=== PATIENT | female | born 1980 | race Caucasian/White ===

== ENCOUNTER → 2016-11-11 | Outpatient (CLI) | payer OTHER ==
--- NOTE | 2016-11-11 17:28 | XR ---
EXAMINATION TYPE: XR chest 2V DATE OF EXAM: 11/11/2016 5:24 PM COMPARISON: [id number] HISTORY: Cough and congestion TECHNIQUE: Frontal and lateral views of the chest are obtained. FINDINGS: Heart and mediastinum are normal. Lungs are clear. Diaphragm is normal. Bony thorax and so ft tissues appear normal. IMPRESSION: Normal chest. No change.
--- NOTE | 2016-11-11 17:51 | XR ---
EXAMINATION TYPE: XR lumbosacral spine min 4V DATE OF EXAM: 11/11/2016 5:27 PM COMPARISON: 01/25/2013 HISTORY: Back pain TECHNIQUE: 5 views FINDINGS: There is a very slight dextroscoliosis. Disc spaces are fairly well-maintained. Posterior e lements are intact. I see no compression fracture. Sacroiliac joints are normal. IMPRESSION: Negative lumbar spine exam. No change. IUD is noted.
== END | disposition home or self-care (01) ==
LOC: RADXRMAIN 17:11
PROVIDERS: ATTEND Internal Medicine
DX: J44.9 Chronic obstructive pulmonary disease, unspecified (principal); M54.5 Low back pain; I11.9 Hypertensive heart disease without heart failure; E78.2 Mixed hyperlipidemia; R35.0 Frequency of micturition; Z97.5 Presence of (intrauterine) contraceptive device
CPT/HCPCS: 71020; 72110

== ENCOUNTER → 2016-12-11 | Outpatient (CLI) | payer OTHER ==
[2016-12-11 16:24] LABS: CHCM 31.4; HDW 2.42; HGB 12.4 gm/dL (11.4-16.0); MCH 27.7 pg (25.0-35.0); MCV 89.4 fL (80.0-100.0); Mean Platelet Volume 6.3; RBC 4.47 m/uL (3.80-5.40); RDW 13.3 % (11.5-15.5); WBC 11.3 k/uL (3.8-10.6)
[2016-12-11 16:33] LABS: ALT 33 U/L (9-52); AST 22 U/L (14-36); Alkaline Phosphatase 91 U/L (38-126); Anion Gap 8 mmol/L; Blood Urea Nitrogen 12 mg/dL (7-17); Calcium 9.3 mg/dL (8.4-10.2); Carbon Dioxide 29 mmol/L (22-30); Chloride 102 mmol/L (98-107); Cholesterol 170 mg/dL (<200); Glucose 87 mg/dL (74-99); HDL Cholesterol 62 mg/dL (40-60); Non-African American GFR(MDRD) >60 (>60 ml/min/1.73 sqM); Potassium 5.2 mmol/L (3.5-5.1); Sodium 139 mmol/L (137-145); Total Bilirubin 0.3 mg/dL (0.2-1.3); Triglycerides 98 mg/dL (<150)
== END | disposition home or self-care (01) ==
LOC: LABWHC1 15:39
PROVIDERS: ATTEND Internal Medicine
DX: I11.9 Hypertensive heart disease without heart failure (principal); E78.2 Mixed hyperlipidemia; M54.5 Low back pain; R35.0 Frequency of micturition; J44.9 Chronic obstructive pulmonary disease, unspecified
CPT/HCPCS: 36415; 80053; 80061; 84439; 84443; 85027

== ENCOUNTER → 2016-12-12 | Outpatient (CLI) | payer OTHER | END | disposition home or self-care (01) | LOC: LABWHC1 12:26 | PROVIDERS: ATTEND Internal Medicine | DX: Z02.83 Encounter for blood-alcohol and blood-drug test (principal) | CPT/HCPCS: 80306 ==

== ENCOUNTER 2016-12-20 19:34 | Emergency (ER) | payer OTHER ==
[2016-12-20 19:45] VITALS: BP 144/75; PULSE 98; RESP 18; TEMP 97.9
--- NOTE | 2016-12-20 19:49 | ED ---
General Adult HPI - General Chief complaint: Dental/Oral Stated complaint: Dental Pain Time Seen by Provider: 12/20/16 19:42 Source: patient, RN notes reviewed Mode of arrival: ambulatory Limitations: no limitations - History of Present Illness Initial comments: Patient 36-year-old female who presents emergency room today with chief complaint of increased dental pain. Patient states that over the last 4 days that increased pain over tooth #19. Patient also admits that over the past 2 days that increased pain over tooth #3. Patient admits to some swelling over the left lower jaw. Admits some foul taste in the mouth. Patient denies any other complaints symptoms. Does admit that she has an appointment with a dental surgeon in 2 days. Patient denies any recent fever, chills, shortness of breath, chest pain, back pain, abdominal pain, nausea or vomiting, numbness or tingling, dysuria or hematuria, constipation or diarrhea, headaches or visual changes, or any other complaints. - Related Data Home Medications Medication Instructions Recorded Confirmed ALPRAZolam [Xanax] 1 tab PO TID PRN 02/06/16 12/20/16 Carisoprodol [Soma] 350 mg PO TID PRN 05/27/16 12/20/16 Gabapentin [Neurontin] 600 mg PO BID 05/27/16 12/20/16 Ibuprofen [Motrin] 600 mg PO TID PRN 05/27/16 12/20/16 oxyCODONE-APAP 10-325MG [Percocet 1 tab PO TID PRN 05/27/16 12/20/16 10-325 mg] Previous Rx's Medication Instructions Recorded HYDROcodone/APAP 5-325MG [[place] 5] 1 each PO Q4HR PRN #20 tab 05/27/16 Clindamycin HCl [Cleocin] 300 mg PO Q6HR 10 Days 12/20/16 traMADol HCl [Ultram] 50 mg PO Q6H PRN #20 tab 12/20/16 Allergies Allergy/AdvReac Type Severity Reaction Status Date / Time codeine Allergy Rash/Hives Verified 12/20/16 19:45 erythromycin base Allergy Rash/Hives Verified 12/20/16 19:45 Penicillins Allergy Rash/Hives Verified 12/20/16 19:45 Review of Systems ROS Statement: Those systems with pertinent positive or pertinent negative responses have been documented in the HPI. ROS Other: All systems not noted in ROS Statement are negative. Past Medical History Past Medical History: No Reported History, Hypertension Additional Past Medical History / Comment(s): cervical cancer History of Any Multi-Drug Resistant Organisms: None Reported Additional Past Surgical History / Comment(s): leep procedure Past Psychological History: Anxiety Smoking Status: Current every day smoker Past Alcohol Use History: None Reported Past Drug Use History: None Reported General Exam - General Exam Comments Initial Comments: General: The patient is awake and alert, in no distress, and does not appear acutely ill. Eye: Pupils are equal, round and reactive to light, extra-ocular movements are intact. No nystagmus. There is normal conjunctiva bilaterally. No signs of icterus. Ears, nose, mouth and throat: There are moist mucous membranes and no oral lesions. Poor dental hygiene with multiple fractured teeth. Patient does have fractured tooth of tooth #19 and tooth #3. Local swelling of the gumline low tooth #19 local tenderness area. Uvula midline. Patient swallows without difficulty. Neck: The neck is supple, there is no tenderness or JVD. Cardiovascular: There is a regular rate and rhythm. No murmur, rub or gallop is appreciated. Respiratory: Lungs are clear to auscultation, respirations are non-labored, breath sounds are equal. No wheezes, stridor, rales, or rhonchi. Musculoskeletal: Normal ROM, no tenderness. Strength 5/5. Sensation intact. Pulses equal bilaterally 2+. Neurological: A&O x 3. CN II-XII intact, There are no obvious motor or sensory deficits. Coordination appears grossly intact. Speech is normal. Skin: Skin is warm and dry and no rashes or lesions are noted. Psychiatric: Cooperative, appropriate mood & affect, normal judgment. Limitations: no limitations Course Vital Signs 12/20/16 19:42 Temperature 97.9 F Pulse Rate 98 Respiratory 18 Rate Blood Pressure 144/75 O2 Sat by Pulse 97 Oximetry Medical Decision Making - Medical Decision Making Patient will be started on Vioxx myosin due to ALLERGIES to penicillin also given a short prescription of pain medication of Ultram. Advised to follow with the oral surgeon. Advised to return for any other concerns. Disposition Clinical Impression: Dental abscess Disposition: HOME SELF-CARE Condition: Good Instructions: Dental Abscess (ED) Additional Instructions: Please use medication as discussed. Please follow-up with oral surgeon. Please return to emergency room if the symptoms increase or worsen or for any other concerns. Prescriptions: Clindamycin HCl [Cleocin] 300 mg PO Q6HR 10 Days traMADol HCl [Ultram] 50 mg PO Q6H PRN #20 tab PRN Reason: Pain Time of Disposition: 19:48
== END 2016-12-20 19:54 | disposition home or self-care (01) ==
LOC: EC 19:34
DX: K04.7 Periapical abscess without sinus (principal); S02.5XXA Fracture of tooth (traumatic), initial encounter for closed fracture; F17.200 Nicotine dependence, unspecified, uncomplicated; Z88.0 Allergy status to penicillin; Z88.1 Allergy status to other antibiotic agents; Z88.5 Allergy status to narcotic agent
CPT/HCPCS: 99282

== ENCOUNTER → 2017-02-05 | Outpatient (CLI) | payer OTHER ==
[2017-02-05 14:12] LABS: Anion Gap 14 mmol/L; Blood Urea Nitrogen 8 mg/dL (7-17); Carbon Dioxide 22 mmol/L (22-30); Chloride 102 mmol/L (98-107); Non-African American GFR(MDRD) >60 (>60 ml/min/1.73 sqM); Potassium 4.1 mmol/L (3.5-5.1); Sodium 138 mmol/L (137-145)
--- NOTE | 2017-02-05 15:34 | US ---
EXAMINATION TYPE: US thyroid st tissue head/neck DATE OF EXAM: 02/05/2017 1:41 PM COMPARISON: In pacs CLINICAL HISTORY: R22.0 SWELLING/MASS NECK HEAD. Follow up thyroid nodule GLAND SIZE: Right Lobe: 4.3 x 1.3 x 2.1 cm Overall Parenchyma: slightly heterogenous Left Lobe: 3.7 x 1.2 x 1.2 cm Overall Parenchyma: slightly heterogeneous Isthmus Thickness: 0.2 cm NODULES RIGHT: # of nodules measured on right: 0 LEFT: # of nodules measured on left: 1 1. 0.7 X 0.5 x 0.6 cm hypoechoic mixed nodule at the lower pole with well-defined margins. This nod ule is wider than tall and shows no intranodular vascularity. Prior size: 0.6 x 0.3 x 0.5 cm ISTHMUS: # of nodules measured in the isthmus: 0 Bilateral slightly heterogeneous thyroid with left lobe nodule described above. IMPRESSION: 1. Correlate for mild thyroiditis 2. Subcentimeter left thyroid nodule may be very minimally increased in size relative to previous exa m.
== END | disposition home or self-care (01) ==
LOC: LABWHC1 13:15
PROVIDERS: ATTEND Internal Medicine
DX: E04.1 Nontoxic single thyroid nodule (principal); I11.9 Hypertensive heart disease without heart failure; E87.6 Hypokalemia
CPT/HCPCS: 36415; 76536; 80051; 82565; 84520

== ENCOUNTER 2017-03-23 09:44 | Emergency (ER) | payer OTHER ==
--- NOTE | 2017-03-23 10:58 | ED ---
General Adult HPI - General Chief complaint: Skin/Abscess/Foreign Body Stated complaint: CYST ON HEAD Time Seen by Provider: 03/23/17 10:10 Source: patient, RN notes reviewed Mode of arrival: ambulatory Limitations: no limitations - History of Present Illness Initial comments: Patient 36-year-old female who presents emergency room today with a chief complaint of a abscess located to the left side of her head. She states she noticed a few days ago. States it is tender and painful. She denies any other complaints or symptoms. Patient denies any recent fever, chills, shortness of breath, chest pain, back pain, abdominal pain, nausea or vomiting, numbness or tingling, dysuria or hematuria, constipation or diarrhea, headaches or visual changes, or any other complaints. - Related Data Home Medications Medication Instructions Recorded Confirmed ALPRAZolam [Xanax] 1 tab PO TID PRN 02/06/16 12/20/16 Carisoprodol [Soma] 350 mg PO TID PRN 05/27/16 12/20/16 Gabapentin [Neurontin] 600 mg PO BID 05/27/16 12/20/16 Ibuprofen [Motrin] 600 mg PO TID PRN 05/27/16 12/20/16 oxyCODONE-APAP 10-325MG [Percocet 1 tab PO TID PRN 05/27/16 12/20/16 10-325 mg] Previous Rx's Medication Instructions Recorded HYDROcodone/APAP 5-325MG [[place] 5] 1 each PO Q4HR PRN #20 tab 05/27/16 Clindamycin HCl [Cleocin] 300 mg PO Q6HR 10 Days 12/20/16 traMADol HCl [Ultram] 50 mg PO Q6H PRN #20 tab 12/20/16 Ibuprofen [Motrin] 600 mg PO Q6HR PRN #40 day 03/23/17 Sulfamethox-Tmp 800-160Mg [Bactrim 1 tab PO Q12HR #20 tab 03/23/17 DS 800-160 mg] Allergies Allergy/AdvReac Type Severity Reaction Status Date / Time codeine Allergy Rash/Hives Verified 12/20/16 19:45 erythromycin base Allergy Rash/Hives Verified 12/20/16 19:45 Penicillins Allergy Rash/Hives Verified 12/20/16 19:45 Review of Systems ROS Statement: Those systems with pertinent positive or pertinent negative responses have been documented in the HPI. ROS Other: All systems not noted in ROS Statement are negative. Past Medical History Past Medical History: No Reported History, Hypertension Additional Past Medical History / Comment(s): cervical cancer History of Any Multi-Drug Resistant Organisms: None Reported Additional Past Surgical History / Comment(s): leep procedure Past Psychological History: Anxiety Smoking Status: Current every day smoker Past Alcohol Use History: None Reported Past Drug Use History: None Reported General Exam - General Exam Comments Initial Comments: General: The patient is awake and alert, in no distress, and does not appear acutely ill. Eye: Pupils are equal, round and reactive to light, extra-ocular movements are intact. No nystagmus. There is normal conjunctiva bilaterally. No signs of icterus. Ears, nose, mouth and throat: There are moist mucous membranes and no oral lesions. Neck: The neck is supple, there is no tenderness or JVD. Cardiovascular: There is a regular rate and rhythm. No murmur, rub or gallop is appreciated. Respiratory: Lungs are clear to auscultation, respirations are non-labored, breath sounds are equal. No wheezes, stridor, rales, or rhonchi. Musculoskeletal: Normal ROM, no tenderness. Strength 5/5. Sensation intact. Pulses equal bilaterally 2+. Neurological: A&O x 3. CN II-XII intact, There are no obvious motor or sensory deficits. Coordination appears grossly intact. Speech is normal. Skin: Proximal May 1 0.5 cm abscess located to the left parietal area. Locally red and tender and swollen. Psychiatric: Cooperative, appropriate mood & affect, normal judgment. Limitations: no limitations Course Vital Signs 03/23/17 10:05 Temperature 98.2 F Pulse Rate 98 Respiratory 20 Rate Blood Pressure 129/66 O2 Sat by Pulse 99 Oximetry Procedures - Procedures Initial comment: Procedure: Incision and drainage The skin overlying the abscess was prepped with Betadine, and anesthetized with 1% lidocaine without epinephrine. A #11 scalpel was then used to incise the abscess. Some purulent material was then extracted from the lesion. Wound culture obtained. Gauze dressing placed on top, The patient tolerated the procedure well. Disposition Clinical Impression: Abscess Disposition: HOME SELF-CARE Condition: Good Instructions: Abscess (ED) Additional Instructions: Please continue warm compresses to the affected area use antibiotics and pain medication as prescribed. Please return to emergency room symptoms increase or worsen or for any other concerns. Prescriptions: Ibuprofen [Motrin] 600 mg PO Q6HR PRN #40 day PRN Reason: Pain Sulfamethox-Tmp 800-160Mg [Bactrim DS 800-160 mg] 1 tab PO Q12HR #20 tab Referrals: None,Stated [Primary Care Provider] - 1-2 days Time of Disposition: 10:58
[2017-03-23 11:11] VITALS: BP 118/72; PULSE 71; RESP 16; TEMP 97.1
== END 2017-03-23 11:11 | disposition home or self-care (01) ==
LOC: EC 09:44
DX: L02.811 Cutaneous abscess of head [any part, except face] (principal); F17.200 Nicotine dependence, unspecified, uncomplicated; Z85.41 Personal history of malignant neoplasm of cervix uteri; Z88.0 Allergy status to penicillin; Z88.1 Allergy status to other antibiotic agents; Z88.5 Allergy status to narcotic agent; Z79.899 Other long term (current) drug therapy
CPT/HCPCS: 10060; 99282

== ENCOUNTER 2018-04-30 21:37 | Emergency (ER) | payer OTHER ==
[2018-04-30] MEDS ORDERED: traMADol 50 MG STARTER PACK 3 TAB BTL PO STA (23:30)
[2018-04-30] MEDS ORDERED: IBUPROFEN 600 MG TAB PO STA (23:30)
[2018-04-30] MEDS ORDERED: ONDANSETRON ODT 4 MG TAB PO STA (23:30)
[2018-04-30] MEDS ORDERED: KETOROLAC 30 MG/ML 1 ML VIAL IM STA (23:31)
[2018-04-30] MEDS ORDERED: CLINDAMYCIN 150 MG CAP PO STA (23:31)
--- NOTE | 2018-04-30 23:32 | ED ---
ENT HPI - General Chief complaint: Dental/Oral Stated complaint: Dental Pain Time Seen by Provider: 04/30/18 23:08 Source: patient Mode of arrival: ambulatory Limitations: no limitations - History of Present Illness Initial comments: 37-year-old female patient presents the emergency department today for evaluation of right upper dental pain. Patient states that this started approximately 3 days ago. States she has been taking Tylenol Motrin without much relief of her symptoms. Patient believes she may have a dental infection. States that she does have multiple broken teeth. States that she did call the dentist and she does have an appointment on the . Patient denies any fevers or chills. States that she has been nauseated. States that she can feel things draining from the gums and she feels this is causing the nausea. She denies any abdominal pain, constipation, or diarrhea. Denies any hematuria , dysuria, urinary frequency, urinary urgency. Related to the mouth she does not have any trismus or difficulty swallowing. - Related Data Home Medications Medication Instructions Recorded Confirmed ALPRAZolam [Xanax] 1 mg PO TID PRN 04/30/18 04/30/18 Acetaminophen [Tylenol Extra 1,000 mg PO Q6H PRN 04/30/18 04/30/18 Strength] Ibuprofen [Motrin Ib] 800 mg PO TID PRN 04/30/18 04/30/18 Previous Rx's Medication Instructions Recorded Clindamycin HCl 300 mg PO Q6H #40 cap 04/30/18 Ibuprofen [Motrin] 600 mg PO Q8HR PRN #30 tab 04/30/18 Allergies Allergy/AdvReac Type Severity Reaction Status Date / Time codeine Allergy Rash/Hives Verified 04/30/18 22:56 erythromycin base Allergy Rash/Hives Verified 04/30/18 22:56 Penicillins Allergy Rash/Hives Verified 04/30/18 22:56 sulfamethoxazole Allergy Swelling Verified 04/30/18 22:56 [From Bactrim] trimethoprim [From Bactrim] Allergy Swelling Verified 04/30/18 22:56 Review of Systems ROS Statement: Those systems with pertinent positive or pertinent negative responses have been documented in the HPI. ROS Other: All systems not noted in ROS Statement are negative. Past Medical History Past Medical History: No Reported History, Hypertension Additional Past Medical History / Comment(s): cervical cancer History of Any Multi-Drug Resistant Organisms: None Reported Additional Past Surgical History / Comment(s): leep procedure Past Psychological History: Anxiety Smoking Status: Current every day smoker Past Alcohol Use History: Occasional Past Drug Use History: None Reported General Exam Limitations: no limitations General appearance: alert, in no apparent distress, other (This is a well- developed, well-nourished adult female patient in no acute distress. Vital signs upon presentation are temperature 98.9F, pulse 99, respirations 18, blood pressure 148/89, pulse ox 98% on room air.) Eye exam: Present: normal appearance, PERRL, EOMI. Absent: scleral icterus, conjunctival injection, periorbital swelling ENT exam: Present: normal oropharynx, mucous membranes moist, other (Patient has multiple broken teeth and very poor dentition. Multiple dental caries. Patient does have gingival erythema and hyperplasia however there is no evidence of drainable abscess.). Absent: normal exam Neck exam: Present: normal inspection. Absent: tenderness, meningismus, lymphadenopathy Respiratory exam: Present: normal lung sounds bilaterally. Absent: respiratory distress, wheezes, rales, rhonchi, stridor Cardiovascular Exam: Present: regular rate, normal rhythm, normal heart sounds. Absent: systolic murmur, diastolic murmur, rubs, gallop, clicks GI/Abdominal exam: Present: soft, normal bowel sounds. Absent: distended, tenderness, guarding, rebound, rigid Neurological exam: Present: alert, oriented X3, CN II-XII intact Psychiatric exam: Present: normal affect, normal mood Skin exam: Present: warm, dry, intact, normal color. Absent: rash Course Vital Signs 04/30/18 04/30/18 21:44 23:37 Temperature 98.9 F 97.9 F Pulse Rate 99 86 Respiratory 18 16 Rate Blood Pressure 148/89 143/98 O2 Sat by Pulse 98 99 Oximetry Medical Decision Making - Medical Decision Making 37-year-old female patient presented to the emergency department today for evaluation of right upper dental pain and nausea. Physical examination did reveal very poor dentition with multiple broken teeth and extensive dental caries. She does have a dentist appointment on May 09. States she is on the emergency can't fully she must. She is afebrile at this time. Abdomen is soft and nontender. She'll be given a prescription for clindamycin, Zofran, ibuprofen, and a starter pack of tramadol for acute pain relief. She is instructed to follow-up with her primary care physician for recheck in 1-2 days. Return parameters discussed in detail. She verbalizes understanding and agrees with this plan. Disposition Clinical Impression: Dental infection Disposition: HOME SELF-CARE Condition: Good Instructions: Dental Caries (ED), Toothache (ED) Additional Instructions: Take medications as directed. Follow-up with the dentist as soon as possible. Return here immediately for any new, worsening, or concerning symptoms. Prescriptions: Clindamycin HCl 300 mg PO Q6H #40 cap Ibuprofen [Motrin] 600 mg PO Q8HR PRN #30 tab PRN Reason: Pain Is patient prescribed a controlled substance at d/c from ED?: No Referrals: None,Stated [Primary Care Provider] - 1-2 days Time of Disposition: 23:32
[2018-04-30 23:45] VITALS: BP 143/98; PULSE 86; RESP 16; TEMP 97.9
== END 2018-05-01 00:10 | disposition home or self-care (01) ==
LOC: EC 21:37
DX: K04.7 Periapical abscess without sinus (principal); K02.9 Dental caries, unspecified; K06.1 Gingival enlargement; K06.8 Other specified disorders of gingiva and edentulous alveolar ridge; S02.5XXA Fracture of tooth (traumatic), initial encounter for closed fracture; R11.0 Nausea; F17.200 Nicotine dependence, unspecified, uncomplicated; Z88.0 Allergy status to penicillin; Z88.1 Allergy status to other antibiotic agents; Z88.5 Allergy status to narcotic agent; Z85.41 Personal history of malignant neoplasm of cervix uteri; Z98.890 Other specified postprocedural states; X58.XXXA Exposure to other specified factors, initial encounter
CPT/HCPCS: 99282; 96372; J1885

== ENCOUNTER 2018-10-26 15:24 | Emergency (ER) | payer OTHER ==
[2018-10-26] MEDS ORDERED: HYDROcodone/APAP 5-325MG 1 EACH TAB PO STA (16:30)
--- NOTE | 2018-10-26 16:33 | ED ---
ENT HPI - General Chief complaint: Dental/Oral Stated complaint: tooth abscess Source: patient Mode of arrival: ambulatory Limitations: no limitations - History of Present Illness Initial comments: This is a 38-year-old female who denies past history presenting today for chief complaint of right-sided dental pain. Patient states that she has had pain in the right upper and right lower teeth for the past 23 days. She states is interfering with her sleep. Patient denies a fever, chills, general malaise, tongue swelling, swelling below tongue or swelling of the facial tissues or neck. Patient has a difficulty breathing or swelling. Patient denies any intractable headache. Patient does state the pain radiates towards ear. Patient denies any nausea, vomiting. Patient states she is concerned about dental abscess. Patient presents today for evaluation. Upon arrival patient appears well, no signs of acute distress. No signs of toxicity. Remainder of ROS negative, patient denies any recent shortness of breath, chest pain, back pain, abdominal pain, numbness or tingling, dysuria or hematuria, constipation or diarrhea, headaches or visual changes, or any other complaints. Upon arrival BP elevated. - Related Data Home Medications Medication Instructions Recorded Confirmed ALPRAZolam [Xanax] 1 mg PO TID PRN 04/30/18 04/30/18 Acetaminophen [Tylenol Extra 1,000 mg PO Q6H PRN 04/30/18 04/30/18 Strength] Ibuprofen [Motrin Ib] 800 mg PO TID PRN 04/30/18 04/30/18 Previous Rx's Medication Instructions Recorded Clindamycin HCl 300 mg PO Q6H #40 cap 04/30/18 Ibuprofen [Motrin] 600 mg PO Q8HR PRN #30 tab 04/30/18 Clindamycin [Cleocin] 450 mg PO Q8H 7 Days #63 capsule 10/26/18 HYDROcodone/APAP 5-325MG [[place] 1 - 2 tab PO Q6HR PRN 2 Days #8 tab 10/26/18 5-325] Ibuprofen 800 mg PO Q8H PRN 7 Days #21 tablet 10/26/18 Allergies Allergy/AdvReac Type Severity Reaction Status Date / Time codeine Allergy Rash/Hives Verified 10/26/18 15:31 erythromycin base Allergy Rash/Hives Verified 10/26/18 15:31 Penicillins Allergy Rash/Hives Verified 10/26/18 15:31 sulfamethoxazole Allergy Swelling Verified 10/26/18 15:31 [From Bactrim] trimethoprim [From Bactrim] Allergy Swelling Verified 10/26/18 15:31 Review of Systems ROS Statement: Those systems with pertinent positive or pertinent negative responses have been documented in the HPI. ROS Other: All systems not noted in ROS Statement are negative. Constitutional: Denies: fever, chills, night sweats ENT: Reports: dental pain Respiratory: Denies: cough, dyspnea Cardiovascular: Denies: chest pain, palpitations Endocrine: Denies: fatigue Gastrointestinal: Denies: abdominal pain, nausea, vomiting Genitourinary: Denies: urgency, dysuria, frequency, hematuria, discharge Musculoskeletal: Denies: back pain Skin: Denies: rash, lesions Past Medical History Past Medical History: Hypertension Additional Past Medical History / Comment(s): cervical cancer History of Any Multi-Drug Resistant Organisms: None Reported Additional Past Surgical History / Comment(s): leep procedure Past Psychological History: Anxiety Smoking Status: Current every day smoker Past Alcohol Use History: Occasional Past Drug Use History: None Reported General Exam - General Exam Comments Initial Comments: General: The patient is awake and alert, in no distress, and does not appear acutely ill. Eye: Pupils are equal, round and reactive to light, extra-ocular movements are intact. No nystagmus. There is normal conjunctiva bilaterally. No signs of icterus. Ears, nose, mouth and throat: There are moist mucous membranes and no oral lesions. Patient has overall poor dentition with multiple caries and cracked teeth. There is no palpable fluctuant abscess along the adjacent gingiva of the upper or lower dentition. Patient is painful to percussion of tooth #15. Neck: The neck is supple, there is no tenderness or JVD. Anterior cervical adenopathy, no swelling below the angle of the mandible no swelling below the tongue or of the oral soft tissues. Cardiovascular: There is a regular rate and rhythm. No murmur, rub or gallop is appreciated. Respiratory: Lungs are clear to auscultation, respirations are non-labored, breath sounds are equal. No wheezes, stridor, rales, or rhonchi. Musculoskeletal: Normal ROM, no tenderness. Strength 5/5. Sensation intact. Pulses equal bilaterally 2+. Neurological: A&O x 3. CN II-XII intact, There are no obvious motor or sensory deficits. Coordination appears grossly intact. Speech is normal. Skin: Skin is warm and dry and no rashes or lesions are noted. Psychiatric: Cooperative, appropriate mood & affect, normal judgment. Limitations: no limitations Course Vital Signs 10/26/18 10/26/18 15:29 16:43 Temperature 98.0 F 98.2 F Pulse Rate 96 91 Respiratory 20 18 Rate Blood Pressure 151/95 138/78 O2 Sat by Pulse 100 98 Oximetry Medical Decision Making - Medical Decision Making Physical exam concerning for periapical abscess. No signs worrisome for systemic spread of infection, or drugs angina. Patient is overall poor dentition, I recommended that definitive treatment of periapical abscess is extraction the tooth. Patient be started on clindamycin given her penicillin ALLERGY. In addition patient was giving a 2 day supply of norco which she states she has previously taken. The associated risks with taking [place] was discussed at length the patient including risk of overdose in depth. Patient verbalizes understanding. Patient denies use of alcohol, benzodiazepines, muscle relaxants or any other respiratory suppressing medications. Patient was given a single dose here, she states she has a ride home. I heard her verbalizes over the phone speaking with ride. At this time I feel pt is stable for discharge with dental f/u tooth extraction next 1-2 days. Patient verbalizes understanding. Patient discharged in stable condition Disposition Clinical Impression: Periapical abscess Disposition: HOME SELF-CARE Condition: Good Instructions: Dental Abscess (ED) Additional Instructions: Please use medication as discussed. Please follow-up with family doctor in the next 2 days, please seek dentist or follow-up with oral surgeon for extraction- MUST EXTRACT TOOTH for definitive treatment. Please return to emergency room if the symptoms increase or worsen or for any other concerns- as discussed including swelling of tongue/face/below tongue/difficulty breathing/intractable headache. Prescriptions: Clindamycin [Cleocin] 450 mg PO Q8H 7 Days #63 capsule HYDROcodone/APAP 5-325MG [[place] 5-325] 1 - 2 tab PO Q6HR PRN 2 Days #8 tab PRN Reason: Severe Pain Ibuprofen 800 mg PO Q8H PRN 7 Days #21 tablet PRN Reason: Pain Is patient prescribed a controlled substance at d/c from ED?: No Referrals: None,Stated [Primary Care Provider] - 1-2 days Milton Phillips DDS [STAFF PHYSICIAN] - 1-2 days Time of Disposition: 16:32
[2018-10-26 16:45] VITALS: BP 138/78; PULSE 91; RESP 18; TEMP 98.2
== END 2018-10-26 16:43 | disposition home or self-care (01) ==
LOC: EC 15:24
DX: K04.7 Periapical abscess without sinus (principal); K02.9 Dental caries, unspecified; K03.81 Cracked tooth; F17.200 Nicotine dependence, unspecified, uncomplicated; Z88.0 Allergy status to penicillin; Z88.1 Allergy status to other antibiotic agents; Z88.2 Allergy status to sulfonamides; Z88.5 Allergy status to narcotic agent; Z85.41 Personal history of malignant neoplasm of cervix uteri
CPT/HCPCS: 99283

== ENCOUNTER 2019-05-14 15:04 | Emergency (ER) | payer OTHER ==
[2019-05-14 15:12] VITALS: RESP 18
[2019-05-14] MEDS ORDERED: HYDROcodone/APAP 5-325MG 1 EACH TAB PO STA (16:12)
--- NOTE | 2019-05-14 16:18 | ED ---
ENT HPI - General Chief complaint: Dental/Oral Stated complaint: Abscess tooth Time Seen by Provider: 05/14/19 15:22 Source: patient Mode of arrival: ambulatory Limitations: no limitations - History of Present Illness Initial comments: 38-year-old female presented for left upper dental pain. Patient states she has had bad teeth for years and history of previous abscess of the the teeth. Patient admit to sharp pain increasing with hot cold foods that radiates to the left ear. Patient denies fever, swelling below the tongue or of the neck, compressive symptoms, difficulty swallowing or breathing. Patient denies . Remaining ROS (-). Upon arrival patient appears well no sign of toxicity or distress. - Related Data Home Medications Medication Instructions Recorded Confirmed ALPRAZolam [Xanax] 1 mg PO TID PRN 04/30/18 04/30/18 Acetaminophen [Tylenol Extra 1,000 mg PO Q6H PRN 04/30/18 04/30/18 Strength] Ibuprofen [Motrin Ib] 800 mg PO TID PRN 04/30/18 04/30/18 Previous Rx's Medication Instructions Recorded Clindamycin HCl 300 mg PO Q6H #40 cap 04/30/18 Ibuprofen [Motrin] 600 mg PO Q8HR PRN #30 tab 04/30/18 Clindamycin [Cleocin] 450 mg PO Q8H 7 Days #63 capsule 10/26/18 HYDROcodone/APAP 5-325MG [[place] 1 - 2 tab PO Q6HR PRN 2 Days #8 tab 10/26/18 5-325] Ibuprofen 800 mg PO Q8H PRN 7 Days #21 tablet 10/26/18 Clindamycin [Cleocin] 450 mg PO Q8H 7 Days #63 capsule 05/14/19 HYDROcodone/APAP 5-325MG [[place] 5] 1 each PO Q4HR PRN 2 Days #12 tab 05/14/19 Allergies Allergy/AdvReac Type Severity Reaction Status Date / Time codeine Allergy Rash/Hives Verified 05/14/19 15:09 erythromycin base Allergy Rash/Hives Verified 05/14/19 15:09 Penicillins Allergy Rash/Hives Verified 05/14/19 15:09 sulfamethoxazole Allergy Swelling Verified 05/14/19 15:09 [From Bactrim] trimethoprim [From Bactrim] Allergy Swelling Verified 05/14/19 15:09 Review of Systems ROS Statement: Those systems with pertinent positive or pertinent negative responses have been documented in the HPI. ROS Other: All systems not noted in ROS Statement are negative. Past Medical History Past Medical History: Hypertension Additional Past Medical History / Comment(s): cervical cancer History of Any Multi-Drug Resistant Organisms: None Reported Additional Past Surgical History / Comment(s): leep procedure Past Psychological History: Anxiety Smoking Status: Current every day smoker Past Alcohol Use History: Occasional Past Drug Use History: None Reported General Exam - General Exam Comments Initial Comments: General: The patient is awake and alert, in no distress, and does not appear acutely ill. Eye: Pupils are equal, round and reactive to light, extra-ocular movements are intact. No nystagmus. There is normal conjunctiva bilaterally. No signs of icterus. Ears, nose, mouth and throat: There are moist mucous membranes and no oral lesions. No swelling of the tongue. The tongue below the angle of the mandible. There is cracked dentition of the tooth #14. Percussion but no palpable fluctuant abscess of the adjacent gingiva. No erythema oral lesions noted no pain to palpation under the tongue. No anterior cervical lymphadenopathy Neck: The neck is supple, there is no tenderness or JVD. Cardiovascular: There is a regular rate and rhythm. No murmur, rub or gallop is appreciated. Respiratory: Lungs are clear to auscultation, respirations are non-labored, breath sounds are equal. No wheezes, stridor, rales, or rhonchi. Musculoskeletal: Normal ROM, no tenderness. Strength 5/5. Sensation intact. Pulses equal bilaterally 2+. Neurological: A&O x 3. CN II-XII intact, There are no obvious motor or sensory deficits. Coordination appears grossly intact. Speech is normal. Skin: Skin is warm and dry and no rashes or lesions are noted. Psychiatric: Cooperative, appropriate mood & affect, normal judgment. Limitations: no limitations Course Vital Signs 05/14/19 05/14/19 15:09 16:22 Temperature 98.1 F 98 F Pulse Rate 68 67 Respiratory 18 18 Rate Blood Pressure 151/82 148/80 O2 Sat by Pulse 98 98 Oximetry Medical Decision Making - Medical Decision Making 38-year-old female presented for dental pain. No evidence of obvious abscess or infection on physical examination. There is cracked dentition. Because the patient's pain from exposed root. No obvious exposure of new. Transient diagnosis does include periapical abscess. Patient be started on clindamycin and given outpatient oral surgery follow-up for tooth extraction. I did emphasize the importance of extraction for treatment of infection. Patient verbalized understanding and was discharged appearing well with her parameters were discussed at length which patient verbalized understanding. Patient did deny . Disposition Clinical Impression: Pain, dental Disposition: HOME SELF-CARE Condition: Good Instructions (If sedation given, give patient instructions): Dental Abscess (ED) Additional Instructions: Please use medication as discussed. Please follow-up with dentist for extraction. Please return to emergency room if the symptoms increase or worsen or for any other concerns. Prescriptions: Clindamycin [Cleocin] 450 mg PO Q8H 7 Days #63 capsule HYDROcodone/APAP 5-325MG [[place] 5] 1 each PO Q4HR PRN 2 Days #12 tab PRN Reason: Pain Is patient prescribed a controlled substance at d/c from ED?: Yes When asked, does pt state using other controlled substances?: No If prescribed controlled substance>3 days was MAPS reviewed?: Prescribed <3 Days If opioid is for acute pain is fill amount 7 days or less?: Yes If Rx opioid, was Start Talking consent form obtained?: Yes Referrals: None,Stated [Primary Care Provider] - 1-2 days Milton Phillips DDS [STAFF PHYSICIAN] - 1-2 days Time of Disposition: 16:18
[2019-05-14 16:24] VITALS: BP 148/80; PULSE 67; TEMP 98
== END 2019-05-14 16:22 | disposition home or self-care (01) ==
LOC: EC 15:04
DX: K08.89 Other specified disorders of teeth and supporting structures (principal); F17.200 Nicotine dependence, unspecified, uncomplicated; Z85.41 Personal history of malignant neoplasm of cervix uteri; Z88.0 Allergy status to penicillin; Z88.1 Allergy status to other antibiotic agents; Z88.2 Allergy status to sulfonamides; Z88.5 Allergy status to narcotic agent
CPT/HCPCS: 99282

== ENCOUNTER 2020-05-05 19:05 | Emergency (ER) | payer OTHER ==
[2020-05-05 19:26] VITALS: BP 131/73; PULSE 102; RESP 18; TEMP 98.8
[2020-05-05] MEDS ORDERED: KETOROLAC 30 MG/ML 1 ML VIAL IM STA (19:50)
[2020-05-05] MEDS ORDERED: CLINDAMYCIN 150 MG CAP PO STA (19:51)
--- NOTE | 2020-05-05 19:57 | ED ---
General Adult HPI - General Chief complaint: Dental/Oral Stated complaint: Abcessed tooth Time Seen by Provider: 05/05/20 19:31 Source: patient, RN notes reviewed, old records reviewed Mode of arrival: ambulatory Limitations: no limitations - History of Present Illness Initial comments: 39-year-old female patient presents to ED for chief complaint of left lower molar dental pain. Force has been bothering her for the last 48 hours. Denies a chance of being . States that she is having pain radiating up to her left ear region. Denies any other complaints. Systemic: Pt denies fatigue, fever/chills, rash. Pt denies weakness, night sweats, weight loss. Neuro: Pt denies headache, visual disturbances, syncope or pre-syncope. HEENT: Pt denies ocular discharge or irritation, rhinorrhea, pharyngitis or notable lymphadenopathy. Cardiopulmonary: Pt denies chest pain, SOB, heart palpitations, dyspnea on exertion. Abdominal/GI: Pt denies abdominal pain, n/v/d. : Pt denies dysuria, burning w/ urination, frequency/urgency. Denies new onset urinary or bowel incontinence. MSK: Pt denies myalgia, loss of strength or function in extremities. Neuro: Pt denies new onset weakness, paresthesias. - Related Data Home Medications Medication Instructions Recorded Confirmed ALPRAZolam [Xanax] 1 mg PO TID PRN 04/30/18 04/30/18 Acetaminophen [Tylenol Extra 1,000 mg PO Q6H PRN 04/30/18 04/30/18 Strength] Ibuprofen [Motrin Ib] 800 mg PO TID PRN 04/30/18 04/30/18 Previous Rx's Medication Instructions Recorded Clindamycin HCl 300 mg PO Q6H #40 cap 04/30/18 Ibuprofen [Motrin] 600 mg PO Q8HR PRN #30 tab 04/30/18 Clindamycin [Cleocin] 450 mg PO Q8H 7 Days #63 capsule 10/26/18 HYDROcodone/APAP 5-325MG [[place] 1 - 2 tab PO Q6HR PRN 2 Days #8 tab 10/26/18 5-325] Ibuprofen 800 mg PO Q8H PRN 7 Days #21 tablet 10/26/18 Clindamycin [Cleocin] 450 mg PO Q8H 7 Days #63 capsule 05/14/19 HYDROcodone/APAP 5-325MG [[place] 5] 1 each PO Q4HR PRN 2 Days #12 tab 05/14/19 Clindamycin [Cleocin] 450 mg PO Q8HR 7 Days cap 05/05/20 Allergies Allergy/AdvReac Type Severity Reaction Status Date / Time amoxicillin Allergy Rash/Hives Verified 05/05/20 19:26 codeine Allergy Rash/Hives Verified 05/05/20 19:26 erythromycin base Allergy Rash/Hives Verified 05/05/20 19:26 Penicillins Allergy Rash/Hives Verified 05/05/20 19:26 sulfamethoxazole Allergy Swelling Verified 05/05/20 19:26 [From Bactrim] trimethoprim [From Bactrim] Allergy Swelling Verified 05/05/20 19:26 Review of Systems ROS Statement: Those systems with pertinent positive or pertinent negative responses have been documented in the HPI. ROS Other: All systems not noted in ROS Statement are negative. Past Medical History Past Medical History: Hypertension Additional Past Medical History / Comment(s): cervical cancer, PE, and "multiple blood clots on arms". pulmonary aneursym History of Any Multi-Drug Resistant Organisms: None Reported Additional Past Surgical History / Comment(s): leep procedure Past Psychological History: Anxiety Smoking Status: Current every day smoker Past Alcohol Use History: Occasional Past Drug Use History: None Reported General Exam - General Exam Comments Initial Comments: Constitutional: NAD, AOX3. HEENT: NC/AT, trachea midline, neck supple. Posterior pharynx non erythematous, without exudates. Broken left lower molar noted, 18th tooth. Mild amount of localized tenderness and gum erythema. No drainage. No abscess. External ears appear normal, without discharge. TMs are pale hannah bilaterally. No posterior auricular tenerness. Mucous membranes moist. Eyes PERRLA, EOM intact. There is no scleral icterus. No pallor noted. Cardiopulmonary: RRR, no murmurs, rubs or gallops, no JVD noted. Lungs CTAB in anterior and posterior hartmann. No peripheral edema. Abdominal exam: Abdomen soft and non-distended. Abdomen non-tender to palpation in all 4 quadrants. Bowel sounds active in LLQ. No hepatosplenomegaly. No ecchymosis Neuro: CN II-XII grossly intact. No nuchal rigidity. No raccon eyes, no quarles sign, no hemotympanum. No cervical spinal tenderness. Limitations: no limitations Course Vital Signs 05/05/20 19:22 Temperature 98.8 F Pulse Rate 102 H Respiratory 18 Rate Blood Pressure 131/73 O2 Sat by Pulse 100 Oximetry Medical Decision Making - Medical Decision Making 39-year-old female patient presents to ED for evaluation of dental pain. Patient does have broken left 18th tooth. Mild muscular erythema. No abscess. Patient denies any chance of being . Patient will be initiated on clindamycin. Will follow-up with primary care provider tomorrow and has been swimming on Friday. Return if condition worsens. Case discussed with Dr. Hernández. Disposition Clinical Impression: Pain, dental Disposition: HOME SELF-CARE Condition: Stable Instructions (If sedation given, give patient instructions): Toothache (ED) Additional Instructions: Take antibiotics as directed. Follow-up with dentist at appointment on friday. Follow up with PCP in1 -2 days. Return to ED if condition worsens in anyway. Prescriptions: Clindamycin [Cleocin] 450 mg PO Q8HR 7 Days cap Is patient prescribed a controlled substance at d/c from ED?: No Referrals: None,Stated [Primary Care Provider] - 1-2 days Roly Ireland [STAFF PHYSICIAN] - 1-2 days
== END 2020-05-05 20:30 | disposition home or self-care (01) ==
LOC: EC 19:05
DX: K08.89 Other specified disorders of teeth and supporting structures (principal); S02.5XXA Fracture of tooth (traumatic), initial encounter for closed fracture; F41.9 Anxiety disorder, unspecified; F17.200 Nicotine dependence, unspecified, uncomplicated; Z88.0 Allergy status to penicillin; Z88.1 Allergy status to other antibiotic agents; Z88.2 Allergy status to sulfonamides; Z88.5 Allergy status to narcotic agent; Z85.41 Personal history of malignant neoplasm of cervix uteri; Z86.711 Personal history of pulmonary embolism; X58.XXXA Exposure to other specified factors, initial encounter
CPT/HCPCS: 99283; 96372; J1885

== ENCOUNTER 2020-06-17 11:21 | Emergency (ER) | payer OTHER ==
[2020-06-17 11:31] VITALS: BP 161/95; PULSE 81; RESP 18; TEMP 98.3
[2020-06-17] MEDS ORDERED: HYDROcodone/APAP 5-325MG 1 EACH TAB PO STA (11:53)
[2020-06-17] MEDS ORDERED: CLINDAMYCIN 150 MG CAP PO STA (11:53)
--- NOTE | 2020-06-17 12:01 | ED ---
ENT HPI - General Chief complaint: Dental/Oral Stated complaint: Abcess tooth Time Seen by Provider: 06/17/20 11:33 Source: patient Mode of arrival: ambulatory Limitations: no limitations - History of Present Illness Initial comments: patient is a 39-year-old female presenting to the emergency Department with complaints of right-sided dental pain 2 days. Patient states she was in ER last month for similar complaint, same tooth. She was treated with antibiotics and states her symptoms have improved, she has not followed up with her dentist. Patient denies any fever, chills, nausea, vomiting. She states she has tried ibuprofen at home without relief of symptoms. She states she knows she has a fractured tooth and many dental caries. She has no further complaints at this time. Upon arrival to the ER, her vital signs are stable. - Related Data Previous Rx's Medication Instructions Recorded Clindamycin [Cleocin] 450 mg PO Q8HR 7 Days #21 cap 06/17/20 Hydrocodone/Acetaminophen [[place] 1 tab PO Q6HR PRN #8 tab 06/17/20 5-325] Ibuprofen [Motrin] 600 mg PO Q8HR PRN #30 tab 06/17/20 Allergies Allergy/AdvReac Type Severity Reaction Status Date / Time amoxicillin Allergy Rash/Hives Verified 06/17/20 11:31 codeine Allergy Rash/Hives Verified 06/17/20 11:31 erythromycin base Allergy Rash/Hives Verified 06/17/20 11:31 Penicillins Allergy Rash/Hives Verified 06/17/20 11:31 sulfamethoxazole Allergy Swelling Verified 06/17/20 11:31 [From Bactrim] trimethoprim [From Bactrim] Allergy Swelling Verified 06/17/20 11:31 Review of Systems ROS Statement: Those systems with pertinent positive or pertinent negative responses have been documented in the HPI. ROS Other: All systems not noted in ROS Statement are negative. Past Medical History Past Medical History: Hypertension Additional Past Medical History / Comment(s): cervical cancer, PE, and "multiple blood clots on arms". pulmonary aneursym History of Any Multi-Drug Resistant Organisms: None Reported Additional Past Surgical History / Comment(s): leep procedure Past Psychological History: Anxiety Smoking Status: Current every day smoker Past Alcohol Use History: Occasional Past Drug Use History: None Reported General Exam - General Exam Comments Initial Comments: GENERAL: Patient is well-developed and well-nourished. Patient is nontoxic and in no acute distress. HEAD: Atraumatic, normocephalic. EYES: Pupils equal round and reactive to light, extraocular movements intact, sclera anicteric, conjunctiva are normal. Eyelids were unremarkable. ENT: TMs normal, nares patent, oropharynx clear without exudates. Moist mucous membranes. patient has many dental caries, fractured teeth. She does have pain over tooth #30 and 31, some mild erythema of the gumline, no abscess seen at this time. there is no swelling of the right side of the face, no overlying erythema. NECK: Normal range of motion, supple without lymphadenopathy or JVD. LUNGS: Unlabored respirations. Breath sounds clear to auscultation bilaterally and equal. No wheezes rales or rhonchi. HEART: Regular rate and rhythm without murmurs, rubs or gallops. ABDOMEN: Soft, nontender, normoactive bowel sounds. No guarding, no rebound. No masses appreciated. : Deferred MUSCULOSKELETAL: Normal extremities with adequate strength and normal range of motion, no pitting or edema. No clubbing or cyanosis. NEUROLOGICAL: Patient is alert and oriented x 3. Normal speech, normal gait. PSYCH: Normal mood, normal affect. SKIN: Warm, Dry, normal turgor, no rashes or lesions noted. Limitations: no limitations Course Vital Signs 06/17/20 11:29 Temperature 98.3 F Pulse Rate 81 Respiratory 18 Rate Blood Pressure 161/95 O2 Sat by Pulse 99 Oximetry Medical Decision Making - Medical Decision Making patient is a 39-year-old female here for right-sided dental pain 2 days. Her vital signs are stable, no fever. There is no visible abscess seen at this time. Patient has not follow-up with her dentist for the last time she was here. Patient was placed on antibiotics, given short course of pain medicine and is urged to follow-up with her dentist. She is in agreement with this plan of care. I will give patient first dose of antibiotic and pain medicine here in the ER. She is stable for discharge. Return parameters were discussed with the patient she verbalized understanding. Disposition Clinical Impression: Dental caries, Fracture of tooth, Toothache Disposition: HOME SELF-CARE Condition: Stable Instructions (If sedation given, give patient instructions): Toothache (ED) Additional Instructions: Please return to the Emergency Department if symptoms worsen or any other concerns. Take antibiotics as prescribed. Follow-up with dentist. May alternate between Tylenol and ibuprofen for discomfort. Prescriptions: Clindamycin [Cleocin] 450 mg PO Q8HR 7 Days #21 cap Ibuprofen [Motrin] 600 mg PO Q8HR PRN #30 tab PRN Reason: Pain Hydrocodone/Acetaminophen [[place] 5-325] 1 tab PO Q6HR PRN #8 tab PRN Reason: Pain Is patient prescribed a controlled substance at d/c from ED?: Yes When asked, does pt state using other controlled substances?: No If prescribed controlled substance>3 days was MAPS reviewed?: Prescribed <3 Days If opioid is for acute pain is fill amount 7 days or less?: Yes If Rx opioid, was Start Talking consent form obtained?: Yes Referrals: None,Stated [Primary Care Provider] - 1-2 days
== END 2020-06-17 12:10 | disposition home or self-care (01) ==
LOC: EC 11:21
DX: K02.9 Dental caries, unspecified (principal); K03.81 Cracked tooth; F17.200 Nicotine dependence, unspecified, uncomplicated; Z88.0 Allergy status to penicillin; Z88.5 Allergy status to narcotic agent; Z88.1 Allergy status to other antibiotic agents; Z88.2 Allergy status to sulfonamides; Z85.41 Personal history of malignant neoplasm of cervix uteri
CPT/HCPCS: 99282

== ENCOUNTER 2020-07-25 00:48 | Emergency (ER) | payer OTHER ==
[2020-07-25 00:54] VITALS: TEMP 98.3
[2020-07-25] MEDS ORDERED: SODIUM CHLORIDE 0.9% 1,000 ML IV ONE (01:01)
[2020-07-25 01:53] LABS: Glucose,Whole Blood 94 mg/dL (75-99)
--- NOTE | 2020-07-25 02:34 | XR ---
EXAMINATION TYPE: XR chest 2V DATE OF EXAM: 07/25/2020 COMPARISON: 11/11/2016 HISTORY: Cough and congestion TECHNIQUE: 2 views FINDINGS: Heart size is normal. There is no heart failure. There is poor inspiration. There are chest leads. There is no pulmonary consolidation. IMPRESSION: Inspiration is decreased compared to old exam.
--- NOTE | 2020-07-25 02:36 | CT ---
EXAMINATION TYPE: CT brain wo con DATE OF EXAM: 07/25/2020 COMPARISON: 06/06/2012 HISTORY: AMS CT DLP: 1231.4 mGycm Automated exposure control for dose reduction was used. Ventricles and sulci appear normal. There is no mass effect nor midline shift. There is no sign of in tracranial hemorrhage. The calvarium is intact. IMPRESSION: Normal unenhanced head CT scan. No change.
[2020-07-25 02:39] LABS: Appearance,Urine Clear (Clear); Bacteria,Urine Moderate /hpf; Bilirubin,Urine Negative (Negative); Blood,Urine Large (Negative); Color,Urine Light Yellow; Glucose,Urine (UA) Negative (Negative); Ketones,Urine Negative (Negative); Leukocyte Esterase,Urine Small (Negative); Nitrite,Urine Negative (Negative); PH, Urine 5.5 (5.0-8.0); Protein,Urine Negative (Negative); RBC,Urine 113 /hpf (0-5); Specific Gravity,Urine 1.004 (1.001-1.035); Squamous Epithelial Cell,Urine <1 /hpf (0-4); Urobilinogen,Urine <2.0 mg/dL (<2.0); WBC,Urine 4 /hpf (0-5)
[2020-07-25 02:40] LABS: Basophils # (A) 0.1 k/uL (0-0.2); Basophils % (A) 1 %; Eosinophils # (A) 0.3 k/uL (0-0.7); Eosinophils % (A) 4 %; HCT 30.8 % (34.0-46.0); HGB 9.4 gm/dL (11.4-16.0); Hypochromasia Moderate; Lymphocytes # (A) 2.2 k/uL (1.0-4.8); Lymphocytes % (A) 28 %; MCH 22.1 pg (25.0-35.0); MCHC 30.6 g/dL (31.0-37.0); MCV 72.2 fL (80.0-100.0); Microcytosis Moderate; Monocytes # (A) 0.5 k/uL (0-1.0); Monocytes % (A) 6 %; Neutrophils # (A) 4.5 k/uL (1.3-7.7); Neutrophils % (A) 59 %; Platelet Count 431 k/uL (150-450); RBC 4.27 m/uL (3.80-5.40); RDW 15.9 % (11.5-15.5); WBC 7.6 k/uL (3.8-10.6)
[2020-07-25 02:51] LABS: ALT 14 U/L (4-34); AST 31 U/L (14-36); African American GFR (CKD) >90 (>60 ml/min/1.73 sqM); Alkaline Phosphatase 81 U/L (38-126); Anion Gap 4 mmol/L; Blood Urea Nitrogen 11 mg/dL (7-17); Calcium 9.4 mg/dL (8.4-10.2); Carbon Dioxide 25 mmol/L (22-30); Chloride 107 mmol/L (98-107); Glucose 84 mg/dL (74-99); Non-African American GFR(CKD) >90 (>60 ml/min/1.73 sqM); Potassium 3.7 mmol/L (3.5-5.1); Sodium 136 mmol/L (137-145); Total Bilirubin 0.4 mg/dL (0.2-1.3); Total Protein 6.8 g/dL (6.3-8.2)
[2020-07-25 02:53] LABS: Amphetamine Screen,Urine Not Detected (NotDetected); Barbiturate Screen,Urine Not Detected (NotDetected); Benzodiazepines Screen,Urine Detected (NotDetected); Cocaine Screen,Urine Not Detected (NotDetected); Methadone Screen, Urine Not Detected (NotDetected); Opiate Screen,Urine Not Detected (NotDetected); Oxycodone Screen, Urine Not Detected (NotDetected); Phencyclidine Screen,Urine Not Detected (NotDetected); Tricyclic Antidepressant,Urine Not Detected (NotDetected); Urn Cannabinoid Scrn Not Detected (NotDetected)
[2020-07-25 03:03] VITALS: BP 120/85; PULSE 92; RESP 18
--- NOTE | 2020-07-25 03:05 | ED ---
General Adult HPI - General Chief complaint: Dizziness Stated complaint: Dizziness Time Seen by Provider: 07/25/20 00:55 Source: patient, EMS Mode of arrival: EMS - History of Present Illness Initial comments: 39-year-old female patient is brought to the emergency department via EMS for evaluation of dizziness. Upon arrival patient is quite drowsy and it is difficult to obtain a history. Patient states that her boyfriend called the ambulance because she keeps "falling out". I asked patient if she was passing out and she said "yes". Patient denies any falls or head injury. Patient states that she does have blood clots in her legs and lungs. States she was diagnosed last July. She does take eliquis currently for this. She denies any headache, chest pain, shortness of breath, abdominal pain. Denies any vomiting or diarrhea. Patient denies drinking alcohol or taking any medications today. States the only medication she takes is Eliquis. Patient denies any recent rash, fever, chills, cough, back pain, numbness, tingling, hematuria, dysuria, urinary urgency, urinary frequency, or any other complaints. - Related Data Previous Rx's Medication Instructions Recorded Clindamycin [Cleocin] 450 mg PO Q8HR 7 Days #21 cap 06/17/20 Hydrocodone/Acetaminophen [[place] 1 tab PO Q6HR PRN #8 tab 06/17/20 5-325] Ibuprofen [Motrin] 600 mg PO Q8HR PRN #30 tab 06/17/20 Allergies Allergy/AdvReac Type Severity Reaction Status Date / Time amoxicillin Allergy Rash/Hives Verified 06/17/20 11:31 codeine Allergy Rash/Hives Verified 06/17/20 11:31 erythromycin base Allergy Rash/Hives Verified 06/17/20 11:31 Penicillins Allergy Rash/Hives Verified 06/17/20 11:31 sulfamethoxazole Allergy Swelling Verified 06/17/20 11:31 [From Bactrim] trimethoprim [From Bactrim] Allergy Swelling Verified 06/17/20 11:31 Review of Systems ROS Statement: Those systems with pertinent positive or pertinent negative responses have been documented in the HPI. ROS Other: All systems not noted in ROS Statement are negative. Past Medical History Past Medical History: Hypertension Additional Past Medical History / Comment(s): cervical cancer, PE, and "multiple blood clots on arms". pulmonary aneursym History of Any Multi-Drug Resistant Organisms: None Reported Additional Past Surgical History / Comment(s): leep procedure Past Psychological History: Anxiety Smoking Status: Current every day smoker Past Alcohol Use History: Occasional Past Drug Use History: Methamphetamine General Exam General appearance: in no apparent distress, other (This is a well-developed, well-nourished adult female patient.) Eye exam: Present: normal appearance, PERRL, EOMI. Absent: scleral icterus, conjunctival injection, periorbital swelling ENT exam: Present: normal exam, normal oropharynx, mucous membranes moist Respiratory exam: Present: normal lung sounds bilaterally. Absent: respiratory distress, wheezes, rales, rhonchi, stridor Cardiovascular Exam: Present: regular rate, normal rhythm, normal heart sounds. Absent: systolic murmur, diastolic murmur, rubs, gallop, clicks GI/Abdominal exam: Present: soft, normal bowel sounds. Absent: distended, tenderness, guarding, rebound, rigid Extremities exam: Present: normal inspection, full ROM, normal capillary refill. Absent: tenderness, pedal edema, joint swelling, calf tenderness Neurological exam: Present: CN II-XII intact, other (Strength in all 4 extremities is 5/5). Absent: alert (Drowsy), oriented X3 (Oriented 2) Psychiatric exam: Present: normal affect, normal mood Skin exam: Present: warm, dry, intact, normal color. Absent: rash Course Vital Signs 07/25/20 07/25/20 07/25/20 00:49 01:54 02:54 Temperature 98.3 F Pulse Rate 87 88 92 Respiratory 16 16 18 Rate Blood Pressure 115/77 116/88 120/85 O2 Sat by Pulse 96 98 97 Oximetry EKG Findings - EKG Comments: EKG Findings:: EKG obtained at shows normal sinus rhythm with a ventricul ar rate of 78, TX interval 164, QRS duration 96, QT 414, QTC 471. No evidence of ST elevation or depression. Medical Decision Making - Medical Decision Making 39-year-old female patient presents to the emergency department today for evaluation of increased sleepiness and dizziness. Physical examination was unremarkable. Patient was quite drowsy during our interaction but she was neurologically intact with no focal deficits. There is no other abnormal physical exam findings. Labs reviewed and did reveal decreased hemoglobin at 9.6. Patient does admit to more frequent periods recently. CT brain was negative. EKG showed normal sinus rhythm. Vital signs are within normal ranges. I did discuss findings and results with the patient. She'll be discharged to follow-up with her primary care physician for recheck in 1-2 days. She is instructed to follow-up with gynecology for further evaluation of her dysfunctional uterine bleeding. Return parameters were discussed in detail. She verbalizes understanding and agrees with this plan - Lab Data Result diagrams: 07/25/20 01:47 07/25/20 01:47 Lab Results 07/25/20 07/25/20 07/25/20 Range/Units 01:45 01:47 01:47 WBC 7.6 (3.8-10.6) k/uL RBC 4.27 (3.80-5.40) m/uL Hgb 9.4 L (11.4-16.0) gm/dL Hct 30.8 L (34.0-46.0) % MCV 72.2 L (80.0-100.0) fL MCH 22.1 L (25.0-35.0) pg MCHC 30.6 L (31.0-37.0) g/dL RDW 15.9 H (11.5-15.5) % Plt Count 431 (150-450) k/uL Neutrophils % 59 % Lymphocytes % 28 % Monocytes % 6 % Eosinophils % 4 % Basophils % 1 % Neutrophils # 4.5 (1.3-7.7) k/uL Lymphocytes # 2.2 (1.0-4.8) k/uL Monocytes # 0.5 (0-1.0) k/uL Eosinophils # 0.3 (0-0.7) k/uL Basophils # 0.1 (0-0.2) k/uL Hypochromasia Moderate Microcytosis Moderate PT 10.3 (9.0-12.0) sec INR 1.0 (<1.2) APTT 25.2 (22.0-30.0) sec Sodium (137-145) mmol/L Potassium (3.5-5.1) mmol/L Chloride (98-107) mmol/L Carbon Dioxide (22-30) mmol/L Anion Gap mmol/L BUN (7-17) mg/dL Creatinine (0.52-1.04) mg/dL Est GFR (CKD-EPI)AfAm (>60 ml/min/1.73 sqM) Est GFR (CKD-EPI)NonAf (>60 ml/min/1.73 sqM) Glucose (74-99) mg/dL POC Glucose (mg/dL) 94 (75-99) mg/dL POC Glu Customer Experience Strategist ID Beth Su Calcium (8.4-10.2) mg/dL Total Bilirubin (0.2-1.3) mg/dL AST (14-36) U/L ALT (4-34) U/L Alkaline Phosphatase (38-126) U/L Troponin I (0.000-0.034) ng/mL Total Protein (6.3-8.2) g/dL Albumin (3.5-5.0) g/dL Urine Color Urine Appearance (Clear) Urine pH (5.0-8.0) Ur Specific [place] (1.001-1.035) Urine Protein (Negative) Urine Glucose (UA) (Negative) Urine Ketones (Negative) Urine Blood (Negative) Urine Nitrite (Negative) Urine Bilirubin (Negative) Urine Urobilinogen (<2.0) mg/dL Ur Leukocyte Esterase (Negative) Urine RBC (0-5) /hpf Urine WBC (0-5) /hpf Ur Squamous Epith Cells (0-4) /hpf Urine Bacteria (None) /hpf Urine Opiates Screen (NotDetected) Ur Oxycodone Screen (NotDetected) Urine Methadone Screen (NotDetected) Ur Propoxyphene Screen (NotDetected) Ur Barbiturates Screen (NotDetected) U Tricyclic Antidepress (NotDetected) Ur Phencyclidine Scrn (NotDetected) Ur Amphetamines Screen (NotDetected) U Methamphetamines Scrn (NotDetected) U Benzodiazepines Scrn (NotDetected) Urine Cocaine Screen (NotDetected) U Marijuana (THC) Screen (NotDetected) 07/25/20 07/25/20 07/25/20 Range/Units 01:47 01:47 02:25 WBC (3.8-10.6) k/uL RBC (3.80-5.40) m/uL Hgb (11.4-16.0) gm/dL Hct (34.0-46.0) % MCV (80.0-100.0) fL MCH (25.0-35.0) pg MCHC (31.0-37.0) g/dL RDW (11.5-15.5) % Plt Count (150-450) k/uL Neutrophils % % Lymphocytes % % Monocytes % % Eosinophils % % Basophils % % Neutrophils # (1.3-7.7) k/uL Lymphocytes # (1.0-4.8) k/uL Monocytes # (0-1.0) k/uL Eosinophils # (0-0.7) k/uL Basophils # (0-0.2) k/uL Hypochromasia Microcytosis PT (9.0-12.0) sec INR (<1.2) APTT (22.0-30.0) sec Sodium 136 L (137-145) mmol/L Potassium 3.7 (3.5-5.1) mmol/L Chloride 107 (98-107) mmol/L Carbon Dioxide 25 (22-30) mmol/L Anion Gap 4 mmol/L BUN 11 (7-17) mg/dL Creatinine 0.71 (0.52-1.04) mg/dL Est GFR (CKD-EPI)AfAm >90 (>60 ml/min/1.73 sqM) Est GFR (CKD-EPI)NonAf >90 (>60 ml/min/1.73 sqM) Glucose 84 (74-99) mg/dL POC Glucose (mg/dL) (75-99) mg/dL POC Glu Customer Experience Strategist ID Calcium 9.4 (8.4-10.2) mg/dL Total Bilirubin 0.4 (0.2-1.3) mg/dL AST 31 (14-36) U/L ALT 14 (4-34) U/L Alkaline Phosphatase 81 (38-126) U/L Troponin I <0.012 (0.000-0.034) ng/mL Total Protein 6.8 (6.3-8.2) g/dL Albumin 4.0 (3.5-5.0) g/dL Urine Color Light Yellow Urine Appearance Clear (Clear) Urine pH 5.5 (5.0-8.0) Ur Specific [place] 1.004 (1.001-1.035) Urine Protein Negative (Negative) Urine Glucose (UA) Negative (Negative) Urine Ketones Negative (Negative) Urine Blood Large H (Negative) Urine Nitrite Negative (Negative) Urine Bilirubin Negative (Negative) Urine Urobilinogen <2.0 (<2.0) mg/dL Ur Leukocyte Esterase Small H (Negative) Urine RBC 113 H (0-5) /hpf Urine WBC 4 (0-5) /hpf Ur Squamous Epith Cells <1 (0-4) /hpf Urine Bacteria Moderate H (None) /hpf Urine Opiates Screen Not Detected (NotDetected) Ur Oxycodone Screen Not Detected (NotDetected) Urine Methadone Screen Not Detected (NotDetected) Ur Propoxyphene Screen Not Detected (NotDetected) Ur Barbiturates Screen Not Detected (NotDetected) U Tricyclic Antidepress Not Detected (NotDetected) Ur Phencyclidine Scrn Not Detected (NotDetected) Ur Amphetamines Screen Not Detected (NotDetected) U Methamphetamines Scrn Not Detected (NotDetected) U Benzodiazepines Scrn Detected H (NotDetected) Urine Cocaine Screen Not Detected (NotDetected) U Marijuana (THC) Screen Not Detected (NotDetected) Disposition Clinical Impression: Fatigue, Anemia, Dysfunctional uterine bleeding Disposition: HOME SELF-CARE Condition: Good Instructions (If sedation given, give patient instructions): Fatigue (ED), Anemia (ED) Additional Instructions: Follow-up with your primary care physician for recheck as soon as possible. Follow-up with your assembly person for further evaluation of your abnormal periods. Rest. Return to the emergency department immediately for any new, worsening, or concerning symptoms. Is patient prescribed a controlled substance at d/c from ED?: No Referrals: None,Stated [Primary Care Provider] - 1-2 days Curt Griffiths MD [STAFF PHYSICIAN] - 1-2 days Time of Disposition: 03:32
[2020-07-25 03:17] LABS: Partial Thromboplastin Time 25.2 sec (22.0-30.0); Prothrombin Time 10.3 sec (9.0-12.0)
== END 2020-07-25 04:00 | disposition home or self-care (01) ==
LOC: EC 00:48
DX: N93.8 Other specified abnormal uterine and vaginal bleeding (principal); D64.9 Anemia, unspecified; R53.83 Other fatigue; F17.200 Nicotine dependence, unspecified, uncomplicated; Z88.0 Allergy status to penicillin; Z88.5 Allergy status to narcotic agent; Z88.1 Allergy status to other antibiotic agents; Z88.2 Allergy status to sulfonamides; Z85.41 Personal history of malignant neoplasm of cervix uteri; Z86.711 Personal history of pulmonary embolism
CPT/HCPCS: 36415; 70450; 71046; 80053; 80306; 81001; 84484; 85025; 85610; 85730; 93005; 96360; 99285

== ENCOUNTER 2020-10-12 16:22 | Emergency (ER) | payer OTHER ==
[2020-10-12 16:28] VITALS: BP 134/89; PULSE 99; RESP 18; TEMP 98.3
[2020-10-12] MEDS ORDERED: HYDROcodone/APAP 5-325MG 1 EACH TAB PO STA (16:54)
--- NOTE | 2020-10-12 16:56 | ED ---
General Adult HPI - General Chief complaint: Dental/Oral Stated complaint: Abscess Tooth Time Seen by Provider: 10/12/20 16:30 Source: patient Mode of arrival: ambulatory Limitations: no limitations - History of Present Illness Initial comments: 39-year-old female with a past medical history of hypertension presents to the emergency room for a chief complaint of dental pain. Patient states yesterday she started to have dental pain and swelling. States last night she started taking leftover clindamycin. States although it has not worsened today and has not improved. She denies noticing any abscesses in her mouth or "I would have pop them myself." Patient states is making her cheeks well up to the bottom of her eye. Patient denies any fevers or chills. Denies any neck stiffness. Denies trismus or difficulty swallowing.Patient has no other complaints at this time including shortness of breath, chest pain, abdominal pain, nausea or vomit ing, headache, or visual changes. - Related Data Previous Rx's Medication Instructions Recorded Clindamycin [Cleocin] 450 mg PO Q8HR 7 Days #21 cap 06/17/20 Hydrocodone/Acetaminophen [[place] 1 tab PO Q6HR PRN #8 tab 06/17/20 5-325] Ibuprofen [Motrin] 600 mg PO Q8HR PRN #30 tab 06/17/20 Clindamycin [Cleocin] 450 mg PO Q8H 7 Days #63 cap 10/12/20 HYDROcodone/APAP 5-325MG [[place] 1 tab PO Q6HR PRN #10 tab 10/12/20 5-325] Allergies Allergy/AdvReac Type Severity Reaction Status Date / Time amoxicillin Allergy Rash/Hives Verified 10/12/20 16:24 codeine Allergy Rash/Hives Verified 10/12/20 16:24 erythromycin base Allergy Rash/Hives Verified 10/12/20 16:24 Penicillins Allergy Rash/Hives Verified 10/12/20 16:24 sulfamethoxazole Allergy Swelling Verified 10/12/20 16:24 [From Bactrim] trimethoprim [From Bactrim] Allergy Swelling Verified 10/12/20 16:24 Review of Systems ROS Statement: Those systems with pertinent positive or pertinent negative responses have been documented in the HPI. ROS Other: All systems not noted in ROS Statement are negative. Past Medical History Past Medical History: Hypertension Additional Past Medical History / Comment(s): cervical cancer, PE, and "multiple blood clots on arms". pulmonary aneursym History of Any Multi-Drug Resistant Organisms: None Reported Additional Past Surgical History / Comment(s): leep procedure. pt had a stent placed in R arm Past Psychological History: Anxiety Smoking Status: Current every day smoker Past Alcohol Use History: None Reported, Occasional Past Drug Use History: None Reported, Methamphetamine General Exam Limitations: no limitations General appearance: alert, in no apparent distress Head exam: Present: atraumatic, normocephalic, normal inspection Eye exam: Present: normal appearance, PERRL, EOMI, periorbital swelling (Minimal edema inferior to the left eye). Absent: scleral icterus, conjunctival inj ection, periorbital tenderness ENT exam: Absent: normal oropharynx (Patient has very poor dentition. She is complaining of pain above tooth 9 and 10. There is no abscess identified with direct visualization and palpation of the gumline. She does have some edema superior to this area. Full range of motion of the mandible. No swelling of the neck.) Neck exam: Present: normal inspection. Absent: tenderness, meningismus, full ROM Respiratory exam: Present: normal lung sounds bilaterally. Absent: respiratory distress, wheezes, rales, rhonchi, stridor Cardiovascular Exam: Present: regular rate, normal rhythm, normal heart sounds. Absent: systolic murmur, diastolic murmur, rubs, gallop, clicks Course Vital Signs 10/12/20 16:24 Temperature 98.3 F Pulse Rate 99 Respiratory 18 Rate Blood Pressure 134/89 O2 Sat by Pulse 99 Oximetry Medical Decision Making - Medical Decision Making Patient does have some edema superior to the left side of the mouth on the cheek area. However there is no abscess identified. No trismus, neck swelling or stiffness, fevers, or sublingual edema. Patient has been on clindamycin for less than 24 hours. At this time patient has not been on antibiotic enough to see a positive affect. I did encourage her to continue to take this antibiotic for another 24 hours. If patient's symptoms continue to worsen after that she is to return to the emergency room. If she has any severely worsening symptoms prior to that she will also return.I discussed this case with attending Dr. Morataya who agrees with this assessment and treatment plan. Disposition Clinical Impression: Pain, dental Disposition: HOME SELF-CARE Condition: Good Instructions (If sedation given, give patient instructions): Dental Abscess (ED) Additional Instructions: Please take antibiotic as directed. Take Motrin for pain. If pain is severe take [place]. Do not drive or operate machinery while taking [place]. If after 24 hours symptoms or worsening return to the emergency room. Return for any other worsening symptoms or concerns. Prescriptions: Clindamycin [Cleocin] 450 mg PO Q8H 7 Days #63 cap HYDROcodone/APAP 5-325MG [[place] 5-325] 1 tab PO Q6HR PRN #10 tab PRN Reason: Pain Is patient prescribed a controlled substance at d/c from ED?: Yes When asked, does pt state using other controlled substances?: No If prescribed controlled substance>3 days was MAPS reviewed?: Prescribed <3 Days If opioid is for acute pain is fill amount 7 days or less?: Yes If Rx opioid, was Start Talking consent form obtained?: Yes Referrals: Дмитрий Rehman DO [Primary Care Provider] - 1-2 days Time of Disposition: 16:54
== END 2020-10-12 17:12 | disposition home or self-care (01) ==
LOC: EC 16:22
DX: K08.89 Other specified disorders of teeth and supporting structures (principal); R60.0 Localized edema; F17.200 Nicotine dependence, unspecified, uncomplicated; Z88.0 Allergy status to penicillin; Z88.5 Allergy status to narcotic agent; Z88.1 Allergy status to other antibiotic agents; Z88.2 Allergy status to sulfonamides; Z85.41 Personal history of malignant neoplasm of cervix uteri; Z86.711 Personal history of pulmonary embolism
CPT/HCPCS: 99282

== ENCOUNTER 2020-10-25 20:13 | Emergency (ER) | payer OTHER ==
[2020-10-25 20:17] VITALS: BP 139/75; PULSE 72; RESP 18; TEMP 98.3
--- NOTE | 2020-10-25 20:54 | ED ---
ENT HPI - General Chief complaint: Dental/Oral Stated complaint: Dental Pain Time Seen by Provider: 10/25/20 20:35 Source: patient Mode of arrival: ambulatory Limitations: no limitations - History of Present Illness Initial comments: Patient is a 40-year-old female presenting to emergency Department with complaints of a continued dental abscess on the left upper side. Patient has been seen in the ER multiple times for same complaint. She states she is unable to get into her dentist. She states that the dentist told her "the abscess needs to be completely gone before they will do anything." She states she just completed a course of clindamycin but feels like the pain is worsening and is requesting a different antibiotic. She is also requesting a new prescription for ibuprofen. Patient states 2 days ago the area did open up and drain yellowish fluid. She denies any fever, chills, nausea or vomiting. She has no further complaints at this time. - Related Data Previous Rx's Medication Instructions Recorded Clindamycin [Cleocin] 450 mg PO Q8HR 7 Days #21 cap 06/17/20 Hydrocodone/Acetaminophen [[place] 1 tab PO Q6HR PRN #8 tab 06/17/20 5-325] Ibuprofen [Motrin] 600 mg PO Q8HR PRN #30 tab 06/17/20 Clindamycin [Cleocin] 450 mg PO Q8H 7 Days #63 cap 10/12/20 HYDROcodone/APAP 5-325MG [[place] 1 tab PO Q6HR PRN #10 tab 10/12/20 5-325] Doxycycline Monohydrate [Monodox] 100 mg PO Q12HR 7 Days #14 cap 10/25/20 Allergies Allergy/AdvReac Type Severity Reaction Status Date / Time amoxicillin Allergy Rash/Hives Verified 10/25/20 20:17 codeine Allergy Rash/Hives Verified 10/25/20 20:17 erythromycin base Allergy Rash/Hives Verified 10/25/20 20:17 Penicillins Allergy Rash/Hives Verified 10/25/20 20:17 sulfamethoxazole Allergy Swelling Verified 10/25/20 20:17 [From Bactrim] trimethoprim [From Bactrim] Allergy Swelling Verified 10/25/20 20:17 Review of Systems ROS Statement: Those systems with pertinent positive or pertinent negative responses have been documented in the HPI. ROS Other: All systems not noted in ROS Statement are negative. Past Medical History Past Medical History: Hypertension Additional Past Medical History / Comment(s): cervical cancer, PE, and "multiple blood clots on arms". pulmonary aneursym History of Any Multi-Drug Resistant Organisms: None Reported Past Surgical History: No Surgical Hx Reported Additional Past Surgical History / Comment(s): leep procedure. pt had a stent placed in R arm Past Psychological History: Anxiety Smoking Status: Current every day smoker Past Alcohol Use History: None Reported, Occasional Past Drug Use History: None Reported, Methamphetamine General Exam - General Exam Comments Initial Comments: GENERAL: Patient is well-developed and well-nourished. Patient is nontoxic and in no acute distress. HEAD: Atraumatic, normocephalic. EYES: Pupils equal round and reactive to light, extraocular movements intact, sclera anicteric, conjunctiva are normal. Eyelids were unremarkable. ENT: TMs normal, nares patent, oropharynx clear without exudates. Moist mucous membranes. Patient has many fractured and decayed teeth, there is no visible abscess seen at this time on the left upper gumline. NECK: Normal range of motion, supple without lymphadenopathy or JVD. LUNGS: Unlabored respirations. Breath sounds clear to auscultation bilaterally and equal. No wheezes rales or rhonchi. HEART: Regular rate and rhythm without murmurs, rubs or gallops. ABDOMEN: Soft, nontender, normoactive bowel sounds. No guarding, no rebound. No masses appreciated. : Deferred MUSCULOSKELETAL: Normal extremities with adequate strength and normal range of motion, no pitting or edema. No clubbing or cyanosis. NEUROLOGICAL: Patient is alert and oriented x 3. Motor and sensory are also intact. Symmetrical smile. Normal speech, normal gait. PSYCH: Normal mood, normal affect. SKIN: Warm, Dry, normal turgor, no rashes or lesions noted. Limitations: no limitations Course Vital Signs 10/25/20 20:15 Temperature 98.3 F Pulse Rate 72 Respiratory 18 Rate Blood Pressure 139/75 O2 Sat by Pulse 100 Oximetry Medical Decision Making - Medical Decision Making Patient is a 40-year-old patient here for dental pain has been increasing over the past couple weeks. She just completed a course of clindamycin but states it did not work and requesting a different antibiotic. Exam reveals many decayed teeth, no visible abscess seen at this time. She has no fevers. I discussed the risks and benefits of continuing with different antibiotics. Patient states she wants a different one. I will start her on doxycycline as she has an amoxicillin ALLERGY. She needs to follow up with her dentist as soon as possible. I will also give prescription for Motrin. She is in agreement this plan of care. She is stable for discharge. Disposition Clinical Impression: Dental caries, Fracture of tooth, Pain, dental Disposition: HOME SELF-CARE Condition: Stable Instructions (If sedation given, give patient instructions): Toothache (ED) Additional Instructions: Please return to the Emergency Department if symptoms worsen or any other concerns. Take antibiotic as prescribed. May alternate between Tylenol and Motrin for pain control. Follow up with her dentist. Prescriptions: Doxycycline Monohydrate [Monodox] 100 mg PO Q12HR 7 Days #14 cap Is patient prescribed a controlled substance at d/c from ED?: No Referrals: Дмитрий Rehman DO [Primary Care Provider] - 1-2 days
== END 2020-10-25 21:06 | disposition home or self-care (01) ==
LOC: EC 20:13
DX: K02.9 Dental caries, unspecified (principal); K03.81 Cracked tooth; F17.200 Nicotine dependence, unspecified, uncomplicated; Z88.0 Allergy status to penicillin; Z88.1 Allergy status to other antibiotic agents; Z88.2 Allergy status to sulfonamides; Z88.5 Allergy status to narcotic agent
CPT/HCPCS: 99282

== ENCOUNTER 2021-04-10 10:47 | Emergency (ER) | payer OTHER ==
[2021-04-10 10:51] VITALS: BP 151/92; PULSE 105; RESP 18; TEMP 98.8
[2021-04-10] MEDS ORDERED: traMADol 50 MG STARTER PACK 3 TAB BTL PO STA (11:52)
[2021-04-10] MEDS ORDERED: HYDROcodone/APAP 5-325MG 1 EACH TAB PO STA (11:52)
--- NOTE | 2021-04-10 11:53 | ED ---
ENT HPI - General Chief complaint: Dental/Oral Stated complaint: Tooth pain Time Seen by Provider: 04/10/21 11:22 Source: patient, RN notes reviewed Mode of arrival: ambulatory Limitations: no limitations - History of Present Illness Initial comments: This a 40-year-old female presents emergency Department chief complaint left- sided dental pain and swelling. Patient states she had some mild discomfort and swelling yesterday but worsened overnight. She states she is scheduled see a dentist in [place]. Patient states that she has have ALLERGIES to penicillin, Bactrim and codeine. Patient's been taking Tylenol Motrin with minimal relief. Denies any difficulty swallowing. Patient offers no other complaints. - Related Data Previous Rx's Medication Instructions Recorded Clindamycin [Cleocin] 450 mg PO Q8HR 7 Days #21 cap 06/17/20 Hydrocodone/Acetaminophen [[place] 1 tab PO Q6HR PRN #8 tab 06/17/20 5-325] Ibuprofen [Motrin] 600 mg PO Q8HR PRN #30 tab 06/17/20 Clindamycin [Cleocin] 450 mg PO Q8H 7 Days #63 cap 10/12/20 HYDROcodone/APAP 5-325MG [[place] 1 tab PO Q6HR PRN #10 tab 10/12/20 5-325] Doxycycline Monohydrate [Monodox] 100 mg PO Q12HR 7 Days #14 cap 10/25/20 Clindamycin HCl 300 mg PO Q6HR #40 cap 04/10/21 Ibuprofen [Motrin] 600 mg PO Q8HR PRN #30 tab 04/10/21 Allergies Allergy/AdvReac Type Severity Reaction Status Date / Time amoxicillin Allergy Rash/Hives Verified 04/10/21 10:51 codeine Allergy Rash/Hives Verified 04/10/21 10:51 erythromycin base Allergy Rash/Hives Verified 04/10/21 10:51 Penicillins Allergy Rash/Hives Verified 04/10/21 10:51 sulfamethoxazole Allergy Swelling Verified 04/10/21 10:51 [From Bactrim] trimethoprim [From Bactrim] Allergy Swelling Verified 04/10/21 10:51 Review of Systems ROS Statement: Those systems with pertinent positive or pertinent negative responses have been documented in the HPI. ROS Other: All systems not noted in ROS Statement are negative. Past Medical History Past Medical History: Hypertension Additional Past Medical History / Comment(s): cervical cancer, PE, and "multiple blood clots on arms". pulmonary aneursym History of Any Multi-Drug Resistant Organisms: None Reported Past Surgical History: No Surgical Hx Reported Additional Past Surgical History / Comment(s): leep procedure. pt had a stent placed in R arm Past Psychological History: Anxiety Smoking Status: Current every day smoker Past Alcohol Use History: Occasional Past Drug Use History: Methamphetamine General Exam Limitations: no limitations General appearance: alert, in no apparent distress Head exam: Present: atraumatic, normocephalic, normal inspection ENT exam: Present: mucous membranes moist. Absent: normal exam, normal oropharynx (Edentulous, swelling left lower mandibular region, multiple dental caries and dental fractures, no drainable abscess) Neck exam: Present: normal inspection, full ROM. Absent: tenderness, meningismus, lymphadenopathy Respiratory exam: Present: normal lung sounds bilaterally. Absent: respiratory distress, wheezes, rales, rhonchi, stridor Cardiovascular Exam: Present: regular rate, normal rhythm, normal heart sounds. Absent: systolic murmur, diastolic murmur, rubs, gallop, clicks Course Vital Signs 04/10/21 10:48 Temperature 98.8 F Pulse Rate 105 H Respiratory 18 Rate Blood Pressure 151/92 O2 Sat by Pulse 96 Oximetry Medical Decision Making - Medical Decision Making Patient has obvious dental infection no drainable abscess was started on clindamycin as she has ALLERGY to penicillin products discharged with ibuprofen and return parameters were discussed. Disposition Clinical Impression: Dental abscess, Toothache Disposition: HOME SELF-CARE Condition: Stable Instructions (If sedation given, give patient instructions): Dental Abscess (ED) Additional Instructions: Please return to the Emergency Department if symptoms worsen or any other concerns. Prescriptions: Clindamycin HCl 300 mg PO Q6HR #40 cap Ibuprofen [Motrin] 600 mg PO Q8HR PRN #30 tab PRN Reason: Pain Is patient prescribed a controlled substance at d/c from ED?: No Referrals: Дмитрий Rehman DO [Primary Care Provider] - 1-2 days Time of Disposition: 11:52
== END 2021-04-10 12:05 | disposition home or self-care (01) ==
LOC: EC 10:47
DX: K04.7 Periapical abscess without sinus (principal); K02.9 Dental caries, unspecified; I10 Essential (primary) hypertension; F17.200 Nicotine dependence, unspecified, uncomplicated; Z86.711 Personal history of pulmonary embolism; Z79.1 Long term (current) use of non-steroidal anti-inflammatories (NSAID); Z79.891 Long term (current) use of opiate analgesic; Z85.41 Personal history of malignant neoplasm of cervix uteri; Z88.0 Allergy status to penicillin; Z88.1 Allergy status to other antibiotic agents; Z88.2 Allergy status to sulfonamides
CPT/HCPCS: 99282

== ENCOUNTER 2022-03-02 10:46 | Emergency (ER) | payer OTHER ==
[2022-03-02 10:57] VITALS: BP 140/84; PULSE 82; RESP 20; TEMP 98.2
[2022-03-02] MEDS ORDERED: KETOROLAC 15 MG/ML 1 ML VIAL IM STA (11:17)
[2022-03-02] MEDS ORDERED: CLINDAMYCIN 150 MG CAP PO STA (11:17)
--- NOTE | 2022-03-02 11:30 | ED ---
ENT HPI - General Chief complaint: Dental/Oral Stated complaint: Abscess Time Seen by Provider: 03/02/22 11:01 Source: patient Mode of arrival: ambulatory Limitations: no limitations - History of Present Illness Initial comments: Patient is a 41-year-old female presenting with chief complaint of dental pain. Patient has several known missing teeth and teeth injuries. States that the pain is located on the left lower side. Has been going on for the last 3 days, has been worsening and today she noticed more substantial swelling to the left lower jaw. Patient states she has been taking Motrin at home with little relief. Patient states she is working on getting an appointment with a new dentist in [place]. Patient denies any dysphasia, fever, chills, nausea, vomiting, chest pain, shortness of breath, neck pain or stiffness, headache, vision or hearing changes, trismus. - Related Data Previous Rx's Medication Instructions Recorded Clindamycin [Cleocin] 450 mg PO Q8HR 7 Days #21 cap 06/17/20 Hydrocodone/Acetaminophen [[place] 1 tab PO Q6HR PRN #8 tab 06/17/20 5-325] Ibuprofen [Motrin] 600 mg PO Q8HR PRN #30 tab 06/17/20 Clindamycin [Cleocin] 450 mg PO Q8H 7 Days #63 cap 10/12/20 HYDROcodone/APAP 5-325MG [[place] 1 tab PO Q6HR PRN #10 tab 10/12/20 5-325] Doxycycline Monohydrate [Monodox] 100 mg PO Q12HR 7 Days #14 cap 10/25/20 Clindamycin HCl 300 mg PO Q6HR #40 cap 04/10/21 Ibuprofen [Motrin] 600 mg PO Q8HR PRN #30 tab 04/10/21 Clindamycin [Cleocin] 450 mg PO TID 7 Days #21 cap 03/02/22 Clindamycin [Cleocin] 450 mg PO TID 7 Days #21 cap 03/02/22 Allergies Allergy/AdvReac Type Severity Reaction Status Date / Time amoxicillin Allergy Rash/Hives Verified 03/02/22 10:57 codeine Allergy Rash/Hives Verified 03/02/22 10:57 erythromycin base Allergy Rash/Hives Verified 03/02/22 10:57 Penicillins Allergy Rash/Hives Verified 03/02/22 10:57 sulfamethoxazole Allergy Swelling Verified 03/02/22 10:57 [From Bactrim] trimethoprim [From Bactrim] Allergy Swelling Verified 03/02/22 10:57 Review of Systems ROS Statement: Those systems with pertinent positive or pertinent negative responses have been documented in the HPI. ROS Other: All systems not noted in ROS Statement are negative. Past Medical History Past Medical History: Hypertension Additional Past Medical History / Comment(s): cervical cancer, PE, and "multiple blood clots on arms". pulmonary aneursym History of Any Multi-Drug Resistant Organisms: None Reported Past Surgical History: No Surgical Hx Reported Additional Past Surgical History / Comment(s): leep procedure. pt had a stent placed in R arm Past Psychological History: Anxiety Smoking Status: Current every day smoker Past Alcohol Use History: Occasional Past Drug Use History: Methamphetamine General Exam Limitations: no limitations General appearance: alert, in no apparent distress Head exam: Present: atraumatic, normocephalic, normal inspection Eye exam: Present: normal appearance, EOMI. Absent: scleral icterus ENT exam: Present: mucous membranes moist Expanded Mouth exam: Present: tongue normal. Absent: drooling, trismus, muffled voice Teeth exam: Present: dental caries, fractured tooth # (Multiple on the left lower side), dental tenderness # (Multiple the left lower side), gingival enlargement Throat exam: normal inspection Neck exam: Present: normal inspection. Absent: tenderness Respiratory exam: Present: normal lung sounds bilaterally. Absent: respiratory distress, wheezes, rales, rhonchi, stridor Cardiovascular Exam: Present: regular rate, normal rhythm, normal heart sounds. Absent: systolic murmur, diastolic murmur, rubs, gallop, clicks Neurological exam: Present: alert, oriented X3, CN II-XII intact Psychiatric exam: Present: normal affect, normal mood Skin exam: Present: warm, dry, intact, normal color. Absent: rash Course Vital Signs 03/02/22 10:55 Temperature 98.2 F Pulse Rate 82 Respiratory 20 Rate Blood Pressure 140/84 O2 Sat by Pulse 100 Oximetry Medical Decision Making - Medical Decision Making Patient is a 41-year-old female presenting with chief complaint of dental pain. Located on the left lower side, patient has several known missing teeth and tooth injuries, has been present for the last 3 days, has been taking Motrin for pain relief. On examination there is no visible swelling to the left lower jaw, tenderness on palpation, gingival enlargement, several missing teeth on the lower left side. I attempted to drain the abscess, mostly blood was expressed and very little pus. Patient was given Toradol for pain control and 450 mg clindamycin as her first antibiotic dose here in the ER, patient is ALLERGIC to amoxicillin. Patient states that she has access to a dentist, will be calling to set up an appointment on Friday. He educated her and supportive treatment with Motrin, Tylenol, warm compresses. Prescribed her clindamycin 450 mg 3 times a day for 7 days. Take medication as prescribed. Educated on alarms symptoms and return parameters. Answered all questions. Report back to ER if any worsening symptoms. Follow up with your PCP this week. Patient conveyed verbal understanding and agreed to the plan. Disposition Clinical Impression: Dental abscess Disposition: HOME SELF-CARE Condition: Good Instructions (If sedation given, give patient instructions): Dental Abscess (ED), Toothache (ED) Additional Instructions: Follow-up with your dentist on Friday. Follow-up with your PCP this week. Report back to ER if any worsening symptoms. Utilize Motrin, Tylenol, warm compresses for symptomatic control. Take medication as prescribed. Prescriptions: Clindamycin [Cleocin] 450 mg PO TID 7 Days #21 cap Clindamycin [Cleocin] 450 mg PO TID 7 Days #21 cap Is patient prescribed a controlled substance at d/c from ED?: No Referrals: Дмитрий Rehman DO [Primary Care Provider] - 1-2 days Time of Disposition: 11:30
== END 2022-03-02 11:47 | disposition home or self-care (01) ==
LOC: EC 10:46
DX: K04.7 Periapical abscess without sinus (principal); I10 Essential (primary) hypertension; F17.200 Nicotine dependence, unspecified, uncomplicated; Z88.0 Allergy status to penicillin; Z88.5 Allergy status to narcotic agent; Z88.1 Allergy status to other antibiotic agents; Z88.2 Allergy status to sulfonamides
CPT/HCPCS: 99283; 96372; J1885

== ENCOUNTER 2022-04-03 14:55 | Emergency (ER) | payer OTHER ==
[2022-04-03 15:13] VITALS: BP 148/91; PULSE 91; RESP 20; TEMP 98.1
[2022-04-03] MEDS ORDERED: KETOROLAC 15 MG/ML 1 ML VIAL IM STA (15:25)
[2022-04-03] MEDS ORDERED: LIDOCAINE/EPINEPHR/TETRACAINE 5 ML BOTTLE TOPICAL ONE (15:25)
--- NOTE | 2022-04-03 15:39 | ED ---
Skin/Abscess/FB HPI - General Chief complaint: Skin/Abscess/Foreign Body Stated complaint: foreign body in finger Time Seen by Provider: 04/03/22 15:21 Source: patient, family, RN notes reviewed Mode of arrival: ambulatory Limitations: no limitations - History of Present Illness Initial comments: This is a 41-year-old female who presents to the emergency department for a splinter in her left pinky finger. Patient states that she was cleaning the window earlier today when she acquired the splinter. The splinter is going in directly through the very tip of the pinky finger, the patient has a Band-Aid around the finger and states that this is to "cut off the circulation", because it is throbbing. She has not taken any medication for the pain. Denies any fevers, chills, sore throat, cough, dyspnea, chest pain, palpitations, abdominal pain, nausea, vomiting, diarrhea, back pain, or headaches. MD complaint: foreign body (Splinter in left pinky finger) - Related Data Previous Rx's Medication Instructions Recorded Clindamycin [Cleocin] 450 mg PO Q8HR 7 Days #21 cap 06/17/20 Hydrocodone/Acetaminophen [[place] 1 tab PO Q6HR PRN #8 tab 06/17/20 5-325] Ibuprofen [Motrin] 600 mg PO Q8HR PRN #30 tab 06/17/20 Clindamycin [Cleocin] 450 mg PO Q8H 7 Days #63 cap 10/12/20 HYDROcodone/APAP 5-325MG [[place] 1 tab PO Q6HR PRN #10 tab 10/12/20 5-325] Doxycycline Monohydrate [Monodox] 100 mg PO Q12HR 7 Days #14 cap 10/25/20 Clindamycin HCl 300 mg PO Q6HR #40 cap 04/10/21 Ibuprofen [Motrin] 600 mg PO Q8HR PRN #30 tab 04/10/21 Clindamycin [Cleocin] 450 mg PO TID 7 Days #21 cap 03/02/22 Clindamycin [Cleocin] 450 mg PO TID 7 Days #21 cap 03/02/22 Cephalexin [Keflex] 1,000 mg PO Q12HR 3 Days #12 cap 04/03/22 Allergies Allergy/AdvReac Type Severity Reaction Status Date / Time amoxicillin Allergy Rash/Hives Verified 04/03/22 15:13 codeine Allergy Rash/Hives Verified 04/03/22 15:13 erythromycin base Allergy Rash/Hives Verified 04/03/22 15:13 Penicillins Allergy Rash/Hives Verified 04/03/22 15:13 sulfamethoxazole Allergy Swelling Verified 04/03/22 15:13 [From Bactrim] trimethoprim [From Bactrim] Allergy Swelling Verified 04/03/22 15:13 Review of Systems ROS Statement: Those systems with pertinent positive or pertinent negative responses have been documented in the HPI. ROS Other: All systems not noted in ROS Statement are negative. Past Medical History Past Medical History: Hypertension Additional Past Medical History / Comment(s): cervical cancer, PE, and "multiple blood clots on arms". pulmonary aneursym History of Any Multi-Drug Resistant Organisms: None Reported Past Surgical History: No Surgical Hx Reported Additional Past Surgical History / Comment(s): leep procedure. pt had a stent placed in R arm Past Psychological History: Anxiety Smoking Status: Current every day smoker Past Alcohol Use History: Occasional Past Drug Use History: Methamphetamine General Exam Limitations: no limitations General appearance: alert, in no apparent distress Head exam: Present: atraumatic, normocephalic, normal inspection Respiratory exam: Present: normal lung sounds bilaterally. Absent: respiratory distress, wheezes, rales, rhonchi, stridor Cardiovascular Exam: Present: regular rate, normal rhythm, normal heart sounds. Absent: systolic murmur, diastolic murmur, rubs, gallop, clicks Neurological exam: Present: alert, oriented X3, CN II-XII intact Psychiatric exam: Present: normal affect, normal mood Skin exam: Present: other (Wood sliver puncturing the left pinky finger going through the very tip at a vertical angle. Approximately half a centimeter is visible.) Course Vital Signs 04/03/22 15:09 Temperature 98.1 F Pulse Rate 91 Respiratory 20 Rate Blood Pressure 148/91 O2 Sat by Pulse 100 Oximetry Procedures - Forgein Body Removal Soft Tissue Consent Obtained: verbal consent Site: hand (left pinky) Anesthetic Used: lidocaine 1% Amount (mLs): 1 Foreign Body Suspected: Wood (splinter) Foreign Body Removed: yes Foreign Body Removal Technique: Forceps Patient Tolerated Procedure: well - Nerve Block Consent Obtained: verbal consent Local Anesthetic Used: Lidocaine 1% Amount of anesthesia used: 1 Side: left Nerve Blocks: digital (and transthecal) Procedure Successful: Yes Medical Decision Making - Medical Decision Making This is a 41-year-old female who presents to the emergency department for a sl iver in the left pinky finger. X-ray was obtained and the finger was numbed with LET. Transthecal block was also performed for additional numbing effect. A 10 blade was used to open up the affected area and a half centimeter incision was made along the insertion line of the sliver. The sliver was removed without any difficulty or residual foreign bodies. This was thoroughly irrigated and cleansed afterwards. Patient advised that she needed her tetanus vaccine updated. She was agreeable to this, however she ended up leaving before it could be given to her. I did send 3 days worth of Keflex to the pharmacy. Also instructed her to soak her finger in water a few times daily and if possible to mix the water with hydrogen peroxide or betadine. Return precautions reviewed in depth, the patient is instructed to return to the emergency department with any new, worsening, or concerning symptoms. Patient verbalized understanding. This case was discussed in detail with the attending ED physician. Presentation, findings, and treatment plan discussed in detail as well. - Radiology Data Radiology results: report reviewed, image reviewed Disposition Clinical Impression: Superficial foreign body (sliver) Disposition: HOME SELF-CARE Instructions (If sedation given, give patient instructions): Soft Tissue Foreign Body (ED), Tetanus (ED) Additional Instructions: Return to the emergency department with any new, worsening, or concerning symptoms. Soak the finger in warm water a few times each day. Take the antibiotic as prescribed for 3 days. Follow up with your primary care provider in 1-2 days. Prescriptions: Cephalexin [Keflex] 1,000 mg PO Q12HR 3 Days #12 cap Is patient prescribed a controlled substance at d/c from ED?: No Referrals: Дмитрий Rehman DO [Primary Care Provider] - 1-2 days
[2022-04-03] MEDS ORDERED: LIDOCAINE 1% INJ 10MG/ML (5 ML VIAL-PF) SQ ONE (15:42)
[2022-04-03] MEDS ORDERED: DIPH,PERTUS(ACELL)TETVAC-LF 0.5 ML VIAL IM ONE (16:37)
--- NOTE | 2022-04-03 21:40 | XR ---
EXAMINATION TYPE: XR finger LT DATE OF EXAM: 04/03/2022 COMPARISON: NONE HISTORY: Wood sliver at the tip TECHNIQUE: 3 views FINDINGS: There is small linear density at the tip of the little finger consistent with a wooden sliv er. This measures 4 mm in length. No fractures seen. IMPRESSION: Small linear soft tissue foreign body at the tip of the little finger.
== END 2022-04-03 16:52 | disposition home or self-care (01) ==
LOC: EC 14:55
DX: S60.457A Superficial foreign body of left little finger, initial encounter (principal); I10 Essential (primary) hypertension; F41.9 Anxiety disorder, unspecified; F17.200 Nicotine dependence, unspecified, uncomplicated; F15.90 Other stimulant use, unspecified, uncomplicated; Z79.899 Other long term (current) drug therapy; Z88.0 Allergy status to penicillin; Z88.1 Allergy status to other antibiotic agents; Z88.2 Allergy status to sulfonamides; Z88.5 Allergy status to narcotic agent; W45.8XXA Other foreign body or object entering through skin, initial encounter
CPT/HCPCS: 73140; 10120; 99283; J2001

== ENCOUNTER 2023-02-17 10:04 | Emergency (ER) | payer OTHER ==
[2023-02-17 10:49] VITALS: RESP 18
[2023-02-17 11:34] LABS: Appearance,Urine Cloudy (Clear); Bilirubin,Urine Negative (Negative); Blood,Urine Negative (Negative); Color,Urine Yellow; Glucose,Urine (UA) Negative (Negative); Ketones,Urine Negative (Negative); Leukocyte Esterase,Urine Large (Negative); Mucus,Urine Moderate /hpf; Nitrite,Urine Negative (Negative); Protein,Urine Trace (Negative); RBC,Urine 5 /hpf (0-5); Specific Gravity,Urine 1.019 (1.001-1.035); Squamous Epithelial Cell,Urine 13 /hpf (0-4); Urobilinogen,Urine <2.0 mg/dL (<2.0); WBC,Urine 43 /hpf (0-5)
--- NOTE | 2023-02-17 11:57 | ED ---
Female Urogenital HPI - General Chief complaint: Urogenital Stated complaint: Poss UTI Time Seen by Provider: 02/17/23 10:51 Source: patient, RN notes reviewed Mode of arrival: ambulatory Limitations: no limitations - History of Present Illness Initial comments: 42-year-old female presents emergency Department with chief complaint of dysuria. Patient states she's been having increased frequency with decreased urine output and discomfort. Patient is concerned she has a UTI. She has no hematuria. Denies any flank pain but states that her back is achy. Patient states she's had UTIs in the past feels very similar. Patient also is requesting medication refill over a request that she is on for DVT - Related Data Previous Rx's Medication Instructions Recorded Clindamycin [Cleocin] 450 mg PO Q8HR 7 Days #21 cap 06/17/20 Hydrocodone/Acetaminophen [Carrie 1 tab PO Q6HR PRN #8 tab 06/17/20 5-325] Ibuprofen [Motrin] 600 mg PO Q8HR PRN #30 tab 06/17/20 Clindamycin [Cleocin] 450 mg PO Q8H 7 Days #63 cap 10/12/20 HYDROcodone/APAP 5-325MG [Carrie 1 tab PO Q6HR PRN #10 tab 10/12/20 5-325] Doxycycline Monohydrate [Monodox] 100 mg PO Q12HR 7 Days #14 cap 10/25/20 Ibuprofen [Motrin] 600 mg PO Q8HR PRN #30 tab 04/10/21 clindamycin HCL [Clindamycin HCl] 300 mg PO Q6HR #40 cap 04/10/21 Clindamycin [Cleocin] 450 mg PO TID 7 Days #21 cap 03/02/22 Clindamycin [Cleocin] 450 mg PO TID 7 Days #21 cap 03/02/22 Cephalexin [Keflex] 1,000 mg PO Q12HR 3 Days #12 cap 04/03/22 Apixaban [Eliquis] 5 mg PO BID #60 tablet 02/17/23 Nitrofurantoin Monohyd/M-Cryst 100 mg PO Q12HR #14 cap 02/17/23 [Macrobid] Allergies Allergy/AdvReac Type Severity Reaction Status Date / Time amoxicillin Allergy Rash/Hives Verified 02/17/23 10:49 codeine Allergy Rash/Hives Verified 02/17/23 10:49 erythromycin base Allergy Rash/Hives Verified 02/17/23 10:49 Penicillins Allergy Rash/Hives Verified 02/17/23 10:49 sulfamethoxazole Allergy Swelling Verified 02/17/23 10:49 [From Bactrim] trimethoprim [From Bactrim] Allergy Swelling Verified 02/17/23 10:49 Review of Systems ROS Statement: Those systems with pertinent positive or pertinent negative responses have been documented in the HPI. ROS Other: All systems not noted in ROS Statement are negative. Past Medical History Past Medical History: Hypertension Additional Past Medical History / Comment(s): cervical cancer, PE, and "multiple blood clots on arms". pulmonary aneursym History of Any Multi-Drug Resistant Organisms: None Reported Past Surgical History: No Surgical Hx Reported Additional Past Surgical History / Comment(s): leep procedure. pt had a stent placed in R arm Past Psychological History: Anxiety Smoking Status: Current every day smoker Past Alcohol Use History: Occasional Past Drug Use History: Methamphetamine General Exam Limitations: no limitations General appearance: alert, in no apparent distress Head exam: Present: atraumatic, normocephalic, normal inspection Eye exam: Present: normal appearance, PERRL, EOMI. Absent: scleral icterus, conjunctival injection, periorbital swelling ENT exam: Present: mucous membranes moist Neck exam: Present: normal inspection, full ROM. Absent: tenderness, meningismus, lymphadenopathy Respiratory exam: Present: normal lung sounds bilaterally. Absent: respiratory distress, wheezes, rales, rhonchi, stridor Cardiovascular Exam: Present: regular rate, normal rhythm, normal heart sounds. Absent: systolic murmur, diastolic murmur, rubs, gallop, clicks GI/Abdominal exam: Present: soft, normal bowel sounds. Absent: distended, tenderness, guarding, rebound, rigid Back exam: Absent: CVA tenderness (R), CVA tenderness (L) Course Vital Signs 02/17/23 10:47 Temperature 98.2 F Pulse Rate 68 Respiratory 18 Rate Blood Pressure 137/85 O2 Sat by Pulse 98 Oximetry Medical Decision Making - Medical Decision Making Was pt. sent in by a medical professional or institution (, PA, CARDIAC RN, urgent care, hospital, or prison...) When possible be specific @ -No Did you speak to anyone other than the patient for history (EMS, parent, family, police, friend...)? What history was obtained from this source @ -No Did you review nursing and triage notes (agree or disagree)? Why? @ -I reviewed and agree with nursing and triage notes Were old charts reviewed (outside hosp., previous admission, EMS record, old EKG, old radiological studies, urgent care reports/EKG's, prison records)? Report findings @ -No old charts were reviewed Differential Diagnosis (chest pain, altered mental status, abdominal pain women, abdominal pain men, vaginal bleeding, weakness, fever, dyspnea, syncope, headache, dizziness, GI bleed, back pain, seizure, CVA, palpatations, mental health, musculoskeletal)? @ -nDifferential Abdominal Pain Women: Appendicitis, Cholecystitis, diverticulosis, ischemic bowel, pancreatitis, hepatitis, UTI, gastroenteritis, AAA, incarcerated hernia, bowel obstruction, constipation, inflammatory bowel, hepatitis, peptic ulcer disease, splenic infarction, perforated viscus, vulvitis, ovarian torsion, PID, kidney stone, placenta abruption, this is not meant to be an all-inclusive listable EKG interpreted by me (3pts min.). @ -None X-rays interpreted by me (1pt min.). @ -None done CT interpreted by me (1pt min.). @ -None done U/S interpreted by me (1pt. min.). @ -None done What testing was considered but not performed or refused? (CT, X-rays, U/S, labs)? Why? @ -None What meds were considered but not given or refused? Why? @ -None Did you discuss the management of the patient with other professionals (professionals i.e. , PA, CARDIAC RN, lab, RT, psych nurse, social science manager, class a lineman, teacher, chief supply chain officer, case fitter)? Give summary @ -No Was smoking cessation discussed for >3mins.? @ -No Was critical care preformed (if so, how long)? @ -No Were there social determinants of health that impacted care today? How? (Homelessness, low income, unemployed, alcoholism, drug addiction, transportation, low edu. Level, literacy, decrease access to med. care, fpc, rehab)? @ -No Was there de-escalation of care discussed even if they declined (Discuss DNR or withdrawal of care, Hospice)? DNR status @ -No What co-morbidities impacted this encounter? (DM, HTN, Smoking, COPD, CAD, Cancer, CVA, ARF, Chemo, Hep., AIDS, mental health diagnosis, sleep apnea, morbid obesity)? @ -None Was patient admitted / discharged? Hospital course, mention meds given and route, prescriptions, significant lab abnormalities, going to OR and other pertinent info. @ -Discharge patient has evidence UTI was discharged on oral antibiotics. Patient was given medication refill. Return parameters were discussed. Undiagnosed new problem with uncertain prognosis? @ -No Drug Therapy requiring intensive monitoring for toxicity (Heparin, Nitro, Insulin, Cardizem)? @ -No Were any procedures done? @ -No Diagnosis/symptom? @ -UTI Acute, or Chronic, or Acute on Chronic? @ -Acute Uncomplicated (without systemic symptoms) or Complicated (systemic symptoms)? @ -Uncomplicated Side effects of treatment? @ -No Exacerbation, Progression, or Severe Exacerbation? @ -No Poses a threat to life or bodily function? How? (Chest pain, [place], [place], pneumonia, PE, COPD, DKA, ARF, appy, cholecystitis, CVA, Diverticulitis, Homicidal, Suicidal, threat to staff... and all critical care pts) @ -No - Lab Data Lab Results 02/17/23 Range/Units 11:03 Urine Color Yellow Urine Appearance Cloudy H (Clear) Urine pH 6.0 (5.0-8.0) Ur Specific [place] 1.019 (1.001-1.035) Urine Protein Trace H (Negative) Urine Glucose (UA) Negative (Negative) Urine Ketones Negative (Negative) Urine Blood Negative (Negative) Urine Nitrite Negative (Negative) Urine Bilirubin Negative (Negative) Urine Urobilinogen <2.0 (<2.0) mg/dL Ur Leukocyte Esterase Large H (Negative) Urine RBC 5 (0-5) /hpf Urine WBC 43 H (0-5) /hpf Ur Squamous Epith Cells 13 H (0-4) /hpf Urine Mucus Moderate H (None) /hpf Disposition Clinical Impression: UTI (urinary tract infection), Medication refill Disposition: HOME SELF-CARE Condition: Stable Instructions (If sedation given, give patient instructions): Urinary Tract Infection in Women (ED) Additional Instructions: Please return to the Emergency Department if symptoms worsen or any other concerns. Prescriptions: Apixaban [Eliquis] 5 mg PO BID #60 tablet Nitrofurantoin Monohyd/M-Cryst [Macrobid] 100 mg PO Q12HR #14 cap Is patient prescribed a controlled substance at d/c from ED?: No Referrals: Дмитрий Rehman DO [Primary Care Provider] - 1-2 days Time of Disposition: 11:56
[2023-02-17 12:21] VITALS: BP 143/88; PULSE 92; TEMP 98.1
== END 2023-02-17 12:21 | disposition home or self-care (01) ==
LOC: EC 10:04
DX: Z76.0 Encounter for issue of repeat prescription (principal); N39.0 Urinary tract infection, site not specified; I10 Essential (primary) hypertension; F41.9 Anxiety disorder, unspecified; F17.200 Nicotine dependence, unspecified, uncomplicated; Z88.5 Allergy status to narcotic agent; Z88.0 Allergy status to penicillin; Z88.1 Allergy status to other antibiotic agents; Z88.2 Allergy status to sulfonamides; Z79.899 Other long term (current) drug therapy; Z79.01 Long term (current) use of anticoagulants
CPT/HCPCS: 81001; 87086; 99283